=== PATIENT | female | born 1950 | race Two or more races ===

== ENCOUNTER 2021-09-25 12:59 | Emergency (ER) | payer OTHER ==
[~2021-09-25] VITALS: Ht 149.9 cm; Wt 65.8 kg
[2021-09-25 14:05] LABS: Basophils # (auto) 0.1 10 ^3/uL (0-0.2); Eosinophils # (auto) 0.1 10 ^3/uL (0-0.8); Hemoglobin 12.6 g/dL (12.2-16.2); Lymphocytes # (auto) 1.5 10 ^3/uL (0.4-5.4); Monocytes # (auto) 0.6 10 ^3/uL (0-1.3); Neutrophils # (auto) 4.9 10 ^3/uL (1.6-8.6); White Blood Cell 7.1 10^3/uL (4.4-10.8)
[2021-09-25 14:07] LABS: Basophils % (auto) 1.1 % (0.0-2.0); Eosinophils % (auto) 1.3 % (0.0-7.0); Hematocrit 37.5 % (36.0-46.0); Lymphocytes % (auto) 21.1 % (10.0-50.0); Mean Corpuscular Hemoglobin 30.9 pg (28.0-32.0); Mean Corpuscular Hgb Conc. 33.5 g/dL (32.0-36.0); Mean Corpuscular Volume 92.2 fL (80.0-100.0); Monocytes % (auto) 7.9 % (0.0-12.0); Neutrophils % (auto) 68.6 % (37.0-80.0); Red Blood Cells 4.06 10^6/uL (4.0-5.20); Red Cell Distribution Width 14.4 % (11.8-14.3)
[2021-09-25 14:23] LABS: Potassium 4.4 mmol/L (3.5-5.1)
[2021-09-25 14:35] LABS: Albumin 3.5 g/dL (3.4-5.0); BUN/Creatinine Ratio 10.7; Bilirubin, Total 0.3 mg/dL (0.2-1.0); Calcium 8.9 mg/dL (8.5-10.1); Magnesium 2.1 mg/dL (1.6-2.6); Total Protein 7.1 g/dL (6.4-8.2)
[2021-09-25 15:14] LABS: Urine Bacteria NONE SEEN /hpf (None Seen); Urine Blood Negative /uL (Negative); Urine Hyaline Cast MOD /lpf (0 - 2); Urine Specific Gravity 1.011 (1.001-1.035); Urine WBC 3 /hpf (0 - 5)
[2021-09-25 16:00] VITALS: BP 118/62
[2021-09-25] MEDS ORDERED: CIPR500T4 PO (16:52)
== END 2021-09-25 17:13 | disposition home or self-care (01) ==
LOC: ER 12:59
DX: N39.0 Urinary tract infection, site not specified (principal); E11.9 Type 2 diabetes mellitus without complications; I10 Essential (primary) hypertension; Z20.822 Contact with and (suspected) exposure to COVID-19
CPT/HCPCS: 36415; 71045; 80053; 81001; 83735; 84484; 85025; 87426; 93005

== ENCOUNTER → 2023-09-03 | Outpatient (CLI) | payer OTHER ==
[~2023-09-03] MED LIST: CIPR500T4 PO
[2023-09-03 09:57] LABS: Urine Bacteria NONE SEEN /hpf (None Seen); Urine Blood Negative /uL (Negative); Urine Clarity Clear (Clear); Urine Protein, UAD Negative (Negative); Urine Specific Gravity 1.004 (1.001-1.035); Urine Urobilinogen Normal (Negative); Urine WBC 2 /hpf (0 - 5); Urine pH 5.5 (5.0-8.0)
[2023-09-03 10:04] LABS: Urine Color Straw (Yellow)
[2023-09-03 10:07] LABS: Basophils # (auto) 0.1 10 ^3/uL (0-0.2); Eosinophils # (auto) 0.2 10 ^3/uL (0-0.8); Hemoglobin 11.8 g/dL (12.2-16.2); Mean Corpuscular Hemoglobin 30.1 pg (28.0-32.0); Neutrophils # (auto) 3.3 10 ^3/uL (1.6-8.6)
[2023-09-03 10:10] LABS: Basophils % (auto) 2.4 % (0.0-2.0); Hematocrit 35.6 % (36.0-46.0); Lymphocytes # (auto) 1.8 10 ^3/uL (0.4-5.4); Lymphocytes % (auto) 29.6 % (10.0-50.0); Mean Corpuscular Hgb Conc. 33.1 g/dL (32.0-36.0); Mean Corpuscular Volume 90.9 fL (80.0-100.0); Monocytes # (auto) 0.6 10 ^3/uL (0-1.3); Monocytes % (auto) 10.5 % (0.0-12.0); Neutrophils % (auto) 54.5 % (37.0-80.0); Red Blood Cells 3.91 10^6/uL (4.0-5.20); Red Cell Distribution Width 14.1 % (11.8-14.3)
[2023-09-03 10:34] LABS: Alanine Aminotransferase 20 U/L (7-40); Alkaline Phosphatase 53 U/L (46-116); Anion Gap 7 (5-15); BUN/Creatinine Ratio 4.9 (10.0-20.0); Blood Urea Nitrogen 5 mg/dL (9-23); Calcium 9.7 mg/dL (8.5-10.1); Carbon Dioxide 29 mmol/L (20-30); Chloride 103 mmol/L (98-107); Creatinine, Urine 15.01 mg/dL (30.0-125.0); Glucose 74 mg/dL (74-106); LDL Cholesterol 61 mg/dL (< 100); Potassium 4.2 mmol/L (3.5-5.1); Sodium 139 mmol/L (136-145); Triglycerides 91 mg/dL (< 150)
[2023-09-03 10:35] LABS: Albumin 4.3 g/dL (3.2-4.8); Bilirubin, Total 0.5 mg/dL (0.2-1.0); Cholesterol 118 mg/dL (< 200); HDL Cholesterol 41 mg/dL (40-59); Total Protein 7.1 g/dL (5.7-8.2)
[2023-09-03 10:36] LABS: Micro Albumin < 3.0 mg/L (<30.0)
[2023-09-03 10:55] LABS: Aspartate Aminotransferase 22 U/L (13-40)
== END | disposition home or self-care (01) ==
LOC: LAB 09:19
DX: Z12.11 Encounter for screening for malignant neoplasm of colon (principal); E11.9 Type 2 diabetes mellitus without complications; E78.5 Hyperlipidemia, unspecified; E03.9 Hypothyroidism, unspecified; E55.9 Vitamin D deficiency, unspecified
CPT/HCPCS: 36415; 80053; 80061; 81001; 82043; 82306; 82570; 83036; 84439; 84443; 85025

== ENCOUNTER → 2023-09-04 | Outpatient (CLI) | payer OTHER | END | disposition home or self-care (01) | LOC: LAB 09:17 | DX: Z12.11 Encounter for screening for malignant neoplasm of colon (principal); E55.9 Vitamin D deficiency, unspecified; E11.9 Type 2 diabetes mellitus without complications; E03.9 Hypothyroidism, unspecified; E78.5 Hyperlipidemia, unspecified | CPT/HCPCS: 82274 ==

== ENCOUNTER 2024-01-13 10:45 | Inpatient (IN) | payer OTHER, MEDICAID ==
[~2024-01-13] VITALS: Ht 149.9 cm; Wt 65.9 kg
[2024-01-13] MEDS: ACETAMINOPHEN 500 MG TAB PO ONE (13:49)
[2024-01-13 16:56] LABS: Basophils # (auto) 0.1 10 ^3/uL (0-0.2); Basophils % (auto) 0.6 % (0.0-2.0); Eosinophils # (auto) 0.1 10 ^3/uL (0-0.8); Eosinophils % (auto) 1.3 % (0.0-7.0); Hematocrit 36.5 % (36.0-46.0); Hemoglobin 12.2 g/dL (12.2-16.2); Lymphocytes # (auto) 1.8 10 ^3/uL (0.4-5.4); Lymphocytes % (auto) 20.6 % (10.0-50.0); Mean Corpuscular Hemoglobin 29.9 pg (28.0-32.0); Mean Corpuscular Hgb Conc. 33.4 g/dL (32.0-36.0); Mean Corpuscular Volume 89.6 fL (80.0-100.0); Monocytes # (auto) 0.6 10 ^3/uL (0-1.3); Monocytes % (auto) 7.3 % (0.0-12.0); Neutrophils # (auto) 6.3 10 ^3/uL (1.6-8.6); Neutrophils % (auto) 70.2 % (37.0-80.0); Red Blood Cells 4.08 10^6/uL (4.0-5.20); Red Cell Distribution Width 14.6 % (11.8-14.3); White Blood Cell 8.9 10^3/uL (4.4-10.8)
[2024-01-13 17:16] LABS: Alanine Aminotransferase 23 U/L (7-40); Alkaline Phosphatase 59 U/L (46-116); Anion Gap 7 (5-15); BUN/Creatinine Ratio 9.3 (10.0-20.0); Blood Urea Nitrogen 11 mg/dL (9-23); Calcium 9.7 mg/dL (8.5-10.1); Carbon Dioxide 26 mmol/L (20-30); Chloride 96 mmol/L (98-107); Glucose 273 mg/dL (74-106); Potassium 4.8 mmol/L (3.5-5.1); Sodium 129 mmol/L (136-145)
[2024-01-13 17:17] LABS: Albumin 4.4 g/dL (3.2-4.8); Aspartate Aminotransferase 13 U/L (13-40); Bilirubin, Total 0.4 mg/dL (0.2-1.0)
[2024-01-13] MEDS ORDERED: DOCUSATE SOD 100 MG CAP PO PRN (20:45)
[2024-01-13] MEDS ORDERED: NITROGLYCERIN 0.4 MG SL TAB SL PRN (20:45)
[2024-01-13] MEDS ORDERED: ACETAMINOPHEN 325 MG TAB PO PRN (20:45)
[2024-01-13] MEDS ORDERED: MORPHINE SULFATE INJ 2 MG/ml SYRG IV PRN (20:45)
[2024-01-13] MEDS ORDERED: DEXTROSE (50%) 50ML SYRG IV PRN (20:45)
[2024-01-13] MEDS ORDERED: METF-372 PO (21:05)
[2024-01-13] MEDS ORDERED: GLIP5TAB21 PO (21:05)
[2024-01-13] MEDS ORDERED: ALEN70TA74 PO (21:05)
[2024-01-13] MEDS ORDERED: LEVO50TA7 PO (21:05)
[2024-01-13] MEDS ORDERED: AMLO1TAB23 PO (21:05)
[2024-01-13] MEDS ORDERED: ATOR10TA52 PO (21:05)
[2024-01-13] MEDS ORDERED: FUR20T PO (21:05)
[2024-01-13] MEDS ORDERED: PANT40T PO (21:05)
[2024-01-13] MEDS ORDERED: INSUINJ37 SC (21:05)
[2024-01-13 22:15] VITALS: PULSE 66; RESP 18; O2SAT 99
[2024-01-13] MEDS: NITROGLYCERIN 2% OINT 1GM PKG TD ONE (22:54)
[2024-01-13] MEDS: ACCU-CHEK COMFORT CURVE STRIP VI SCH (22:54)
[2024-01-13] MEDS: HYDROcodone-ACET 5/325MG TAB PO PRN (23:05)
[2024-01-13] MEDS: ASPirin-EC 325mg tab PO ONE (23:05)
[2024-01-13] MEDS: InsuLIN REG 1unit/0.01ml Soln (100units/ml) SC SCH (23:05)
[2024-01-14] VITALS: PULSE 64; RESP 16; O2SAT 98
[2024-01-14] MEDS: SODIUM CHLORIDE 0.9% 1,000 ML IV ONE (00:19)
[2024-01-14] MEDS: ONDANSETRON HCL 4 MG/2 ML VIAL IV PRN (00:41)
[2024-01-14] MEDS: MORPHINE SULFATE INJ 2 MG/ml SYRG IV PRN (00:41)
[2024-01-14] MEDS: LEVOTHYROXINE SODIUM 50 MCG TAB PO SCH (06:42)
[2024-01-14 06:47] LABS: Basophils # (auto) 0.1 10 ^3/uL (0-0.2); Basophils % (auto) 0.9 % (0.0-2.0); Eosinophils # (auto) 0.3 10 ^3/uL (0-0.8); Eosinophils % (auto) 4.2 % (0.0-7.0); Hematocrit 32.4 % (36.0-46.0); Lymphocytes # (auto) 2.3 10 ^3/uL (0.4-5.4); Mean Corpuscular Hemoglobin 29.9 pg (28.0-32.0); Mean Corpuscular Hgb Conc. 33.9 g/dL (32.0-36.0); Mean Corpuscular Volume 88.1 fL (80.0-100.0); Monocytes # (auto) 0.8 10 ^3/uL (0-1.3); Monocytes % (auto) 12.1 % (0.0-12.0); Neutrophils # (auto) 3.1 10 ^3/uL (1.6-8.6); Neutrophils % (auto) 47.8 % (37.0-80.0); Red Blood Cells 3.68 10^6/uL (4.0-5.20); Red Cell Distribution Width 14.7 % (11.8-14.3); White Blood Cell 6.5 10^3/uL (4.4-10.8)
[2024-01-14 06:58] LABS: Alanine Aminotransferase 16 U/L (7-40); Albumin 3.9 g/dL (3.2-4.8); Alkaline Phosphatase 47 U/L (46-116); Anion Gap 9 (5-15); Aspartate Aminotransferase 9 U/L (13-40); BUN/Creatinine Ratio 12.5 (10.0-20.0); Bilirubin, Total 0.4 mg/dL (0.2-1.0); Blood Urea Nitrogen 12 mg/dL (9-23); Calcium 9.1 mg/dL (8.7-10.4); Carbon Dioxide 26 mmol/L (20-30); Chloride 100 mmol/L (98-107); Glucose 65 mg/dL (74-106); Potassium 4.2 mmol/L (3.5-5.1); Total Protein 6.5 g/dL (5.7-8.2)
[2024-01-14 07:10] LABS: Sodium 135 mmol/L (136-145)
[2024-01-14 07:28] VITALS: PULSE 65; RESP 14; O2SAT 96
[2024-01-14 08:01] LABS: Triglycerides 67 mg/dL (< 150)
[2024-01-14 08:02] LABS: Cholesterol 117 mg/dL (< 200); LDL Cholesterol 62 mg/dL (< 100)
[2024-01-14 08:03] LABS: HDL Cholesterol 46 mg/dL (40-59)
[2024-01-14 10:08] VITALS: PULSE 78; RESP 20; O2SAT 96
[2024-01-14] MEDS: ASPirin-EC 81 mg tab PO SCH (10:25)
[2024-01-14] MEDS: FUROSEMIDE 20 MG TAB PO SCH (10:25)
[2024-01-14] MEDS: amLODIPine BESYLATE 5 MG TAB PO SCH (10:25)
[2024-01-14] MEDS: ATORVASTATIN 20 MG TAB PO SCH (10:26)
[2024-01-14] MEDS: PANTOPRAZOLE 40 MG TAB PO SCH (10:26)
[2024-01-14] MEDS: ENOXAPARIN SOD 40 MG/0.4 ML SYRINGE SC SCH (10:29)
[2024-01-14 12:13] LABS: Folate (Folic Acid) 30.06 ng/mL (>5.38)
[2024-01-14 12:42] VITALS: BP 106/49; PULSE 71; RESP 18; TEMP 97.7; O2SAT 96
[2024-01-14] MEDS ORDERED: ASPI-543 PO (16:34)
[2024-01-14 17:02] VITALS: BP 123/63; PULSE 73; RESP 18; TEMP 98.6
[2024-01-18] MEDS ORDERED: ALENDRONATE SODIUM 10 MG TAB PO SCH (07:00)
== END 2024-01-14 18:29 | disposition home or self-care (01) | DRG 913 ==
LOC: ER 10:45 → TELE 20:47 → TELE-EAST 01-14 09:25
PROVIDERS: ADMIT Internal Medicine; ATTEND Internal Medicine
DX: S29.8XXA Other specified injuries of thorax, initial encounter (principal); N17.0 Acute kidney failure with tubular necrosis; E87.1 Hypo-osmolality and hyponatremia; I10 Essential (primary) hypertension; E11.9 Type 2 diabetes mellitus without complications; E78.5 Hyperlipidemia, unspecified; E03.9 Hypothyroidism, unspecified; S20.212A Contusion of left front wall of thorax, initial encounter; W18.39XA Other fall on same level, initial encounter; Z96.652 Presence of left artificial knee joint; Z88.2 Allergy status to sulfonamides; Y93.89 Activity, other specified; Y92.89 Other specified places as the place of occurrence of the external cause; Y99.8 Other external cause status; Z82.49 Family history of ischemic heart disease and other diseases of the circulatory system; Z83.3 Family history of diabetes mellitus
CPT/HCPCS: 36415; 70450; 71101; 80053; 80061; 82306; 82607; 82746; 82962; 83036; 83880; 84436; 84443; 84481; 84484; 85025; 93005; 93306; 93886; 96365; 96375; 97163; G0378; J1815; J2405

== ENCOUNTER → 2024-02-24 | Outpatient (CLI) | payer OTHER, MEDICAID ==
[~2024-02-24] MED LIST changes: +ALEN70TA74 PO; +AMLO1TAB23 PO; +ASPI-543 PO; +ATOR10TA52 PO; +FUR20T PO; +GLIP5TAB21 PO; +INSUINJ37 SC; +LEVO50TA7 PO; +METF-372 PO; +PANT40T PO
[2024-02-24 09:07] LABS: Basophils # (auto) 0.1 10 ^3/uL (0-0.2); Eosinophils # (auto) 0.2 10 ^3/uL (0-0.8); Hemoglobin 11.2 g/dL (12.2-16.2); Lymphocytes # (auto) 1.8 10 ^3/uL (0.4-5.4); Monocytes # (auto) 0.6 10 ^3/uL (0-1.3); White Blood Cell 5.9 10^3/uL (4.4-10.8)
[2024-02-24 09:11] LABS: Basophils % (auto) 2.3 % (0.0-2.0); Hematocrit 32.1 % (36.0-46.0); Lymphocytes % (auto) 30.7 % (10.0-50.0); Mean Corpuscular Hemoglobin 30.9 pg (28.0-32.0); Mean Corpuscular Hgb Conc. 34.9 g/dL (32.0-36.0); Mean Corpuscular Volume 88.4 fL (80.0-100.0); Monocytes % (auto) 10.2 % (0.0-12.0); Neutrophils # (auto) 3.1 10 ^3/uL (1.6-8.6); Neutrophils % (auto) 52.8 % (37.0-80.0); Nucleated Red Blood Cells % 0.1 %; Red Blood Cells 3.64 10^6/uL (4.0-5.20); Red Cell Distribution Width 14.3 % (11.8-14.3)
[2024-02-24 09:34] LABS: Urine Bacteria FEW /hpf (None Seen); Urine Blood Negative /uL (Negative); Urine Clarity Clear (Clear); Urine Color Colorless (Yellow); Urine Hyaline Cast FEW /lpf (0 - 2); Urine Protein, UAD Negative (Negative); Urine Specific Gravity 1.006 (1.001-1.035); Urine Urobilinogen Normal (Negative); Urine WBC <1 /hpf (0 - 5); Urine pH 5.5 (5.0-9.0)
[2024-02-24 09:44] LABS: Alanine Aminotransferase 14 U/L (7-40); Alkaline Phosphatase 52 U/L (46-116); Anion Gap 6 (5-15); Calcium 9.4 mg/dL (8.7-10.4); Carbon Dioxide 28 mmol/L (20-30); Chloride 103 mmol/L (98-107); Glucose 89 mg/dL (74-106); Potassium 4.3 mmol/L (3.5-5.1); Sodium 137 mmol/L (136-145)
[2024-02-24 09:45] LABS: BUN/Creatinine Ratio 8.2 (10.0-20.0); Blood Urea Nitrogen 8 mg/dL (9-23); LDL Cholesterol 66 mg/dL (< 100); Triglycerides 95 mg/dL (< 150)
[2024-02-24 09:46] LABS: Albumin 4.1 g/dL (3.2-4.8); Aspartate Aminotransferase 11 U/L (13-40); Cholesterol 126 mg/dL (< 200); HDL Cholesterol 47 mg/dL (40-59)
[2024-02-24 09:47] LABS: Bilirubin, Total 0.5 mg/dL (0.2-1.0); Total Protein 6.6 g/dL (5.7-8.2)
[2024-02-24 11:14] LABS: Free T4 (Free Thyroxine) 1.47 ng/dL (0.89-1.76)
== END | disposition home or self-care (01) ==
LOC: LAB 08:25
DX: I10 Essential (primary) hypertension (principal); E11.9 Type 2 diabetes mellitus without complications; E78.5 Hyperlipidemia, unspecified; E03.9 Hypothyroidism, unspecified; E55.9 Vitamin D deficiency, unspecified
CPT/HCPCS: 36415; 80053; 80061; 81001; 82306; 82607; 83036; 84439; 84443; 85025

== ENCOUNTER → 2024-05-06 | Outpatient (CLI) | payer OTHER, MEDICAID ==
[~2024-05-06] VITALS: Ht 149.9 cm; Wt 68.0 kg
[~2024-05-06] MED LIST changes: -FUR20T PO; +FURO20TA4 PO
[2024-05-06] MEDS: ADENOSINE 57 MG in GIVE UN-DILUTED 0 ML IV ONE (11:16)
== END | disposition home or self-care (01) ==
LOC: RT 09:02
PROVIDERS: ATTEND Student in an Organized Health Care Education/Training Program
DX: Z01.810 Encounter for preprocedural cardiovascular examination (principal); K80.20 Calculus of gallbladder without cholecystitis without obstruction; R07.9 Chest pain, unspecified; E78.5 Hyperlipidemia, unspecified; I10 Essential (primary) hypertension; E11.9 Type 2 diabetes mellitus without complications
CPT/HCPCS: 78452; 93017; A9500; J0153

== ENCOUNTER → 2024-05-22 | Outpatient (CLI) | payer OTHER, MEDICAID ==
[2024-05-22 09:26] LABS: Urine Bacteria FEW /hpf (None Seen); Urine Blood Negative /uL (Negative); Urine Clarity Hazy (Clear); Urine Color Light-Yellow (Yellow); Urine Hyaline Cast FEW /lpf (0 - 2); Urine Protein, UAD Negative (Negative); Urine Specific Gravity 1.005 (1.001-1.035); Urine Urobilinogen Normal (Negative); Urine WBC 4 /hpf (0 - 5); Urine pH 5.5 (5.0-9.0)
[2024-05-22 10:22] LABS: Anion Gap 6 (5-15); Calcium 9.9 mg/dL (8.7-10.4); Carbon Dioxide 28 mmol/L (20-31); Chloride 98 mmol/L (98-107); Potassium 4.1 mmol/L (3.5-5.1); Sodium 132 mmol/L (136-145)
[2024-05-22 10:27] LABS: Alkaline Phosphatase 64 U/L (46-116); Glucose 201 mg/dL (74-106)
[2024-05-22 10:28] LABS: LDL Cholesterol 75 mg/dL (< 100); Triglycerides 152 mg/dL (< 150)
[2024-05-22 10:29] LABS: Albumin 4.3 g/dL (3.2-4.8); Aspartate Aminotransferase 13 U/L (13-40); BUN/Creatinine Ratio 5.7 (10.0-20.0); Blood Urea Nitrogen < 5 mg/dL (9-23); Cholesterol 136 mg/dL (< 200); HDL Cholesterol 45 mg/dL (40-59)
[2024-05-22 10:30] LABS: Bilirubin, Total 0.5 mg/dL (0.2-1.0); Total Protein 7.2 g/dL (5.7-8.2)
[2024-05-22 10:43] LABS: Micro Albumin < 3.0 mg/L (<30.0)
[2024-05-22 10:48] LABS: Alanine Aminotransferase 17 U/L (7-40)
[2024-05-22 11:30] LABS: Creatinine, Urine 18.15 mg/dL (30.0-125.0)
== END | disposition home or self-care (01) ==
LOC: LAB 09:00
DX: I10 Essential (primary) hypertension (principal); E11.649 Type 2 diabetes mellitus with hypoglycemia without coma; E11.65 Type 2 diabetes mellitus with hyperglycemia; E55.9 Vitamin D deficiency, unspecified; E78.5 Hyperlipidemia, unspecified
CPT/HCPCS: 36415; 80053; 80061; 81001; 82043; 82306; 82570; 82607; 83036; 84443

== ENCOUNTER 2024-06-10 08:23 | Inpatient (IN) | payer OTHER, MEDICAID ==
[2024-06-05 12:26] LABS: Urine Bacteria None Seen /hpf (None Seen)
[2024-06-05 13:17] LABS: Basophils # (auto) 0.1 10 ^3/uL (0-0.2); Eosinophils # (auto) 0.1 10 ^3/uL (0-0.8); Hemoglobin 11.8 g/dL (12.2-16.2)
[2024-06-05 13:19] LABS: Basophils % (auto) 1.1 % (0.0-2.0); Eosinophils % (auto) 1.7 % (0.0-7.0); Hematocrit 35.3 % (36.0-46.0); Lymphocytes # (auto) 2.1 10 ^3/uL (0.4-5.4); Lymphocytes % (auto) 25.4 % (10.0-50.0); Mean Corpuscular Hemoglobin 29.2 pg (28.0-32.0); Mean Corpuscular Hgb Conc. 33.4 g/dL (32.0-36.0); Mean Corpuscular Volume 87.4 fL (80.0-100.0); Monocytes # (auto) 0.8 10 ^3/uL (0-1.3); Monocytes % (auto) 9.1 % (0.0-12.0); Neutrophils # (auto) 5.2 10 ^3/uL (1.6-8.6); Neutrophils % (auto) 62.7 % (37.0-80.0); Platelet Count (auto) 534 10^3/uL (140-450); Red Blood Cells 4.04 10^6/uL (4.0-5.20); Red Cell Distribution Width 13.9 % (11.8-14.3); White Blood Cell 8.3 10^3/uL (4.4-10.8)
[2024-06-05 13:31] LABS: Alanine Aminotransferase 17 U/L (7-40); Albumin 4.2 g/dL (3.2-4.8); Alkaline Phosphatase 66 U/L (46-116); Anion Gap 9 (5-15); Aspartate Aminotransferase 10 U/L (13-40); BUN/Creatinine Ratio 5.2 (10.0-20.0); Bilirubin, Total 0.3 mg/dL (0.2-1.0); Blood Urea Nitrogen 5 mg/dL (9-23); Calcium 9.6 mg/dL (8.7-10.4); Carbon Dioxide 26 mmol/L (20-31); Chloride 98 mmol/L (98-107); Glucose 161 mg/dL (74-106); Potassium 4.6 mmol/L (3.5-5.1); Sodium 133 mmol/L (136-145); Total Protein 7.1 g/dL (5.7-8.2)
[2024-06-05 13:35] LABS: Partial Thromboplastin Time 25.1 SEC (24.5-34.5); Prothrombin Time 10.6 sec (9.3-11.8); Urine Blood Negative /uL (Negative); Urine Clarity Clear (Clear); Urine Color Light-Yellow (Yellow); Urine Protein, UAD Negative (Negative); Urine Specific Gravity 1.004 (1.001-1.035); Urine Urobilinogen Normal (Negative); Urine WBC 23 /hpf (0 - 5); Urine pH 5.5 (5.0-9.0)
[~2024-06-10] VITALS: Ht 149.9 cm; Wt 73.5 kg
[~2024-06-10 08:23] MED LIST changes: -ASPI-543 PO; +BENA10TA16 PO; -CIPR500T4 PO; +GABA-1250 PO; -GLIP5TAB21 PO
[2024-06-10] MEDS: ceFAZolin 2 GM/D5W100ml 100 ML IV ONE (09:20)
[2024-06-10] MEDS: LIDOCAINE 1%HCL (LOCAL ANESTH) 10 ML MDV IJ ONE (09:38)
[2024-06-10 10:16] VITALS: RESP 13; O2SAT 100
[2024-06-10] MEDS ORDERED: ONDANSETRON HCL 4 MG/2 ML VIAL IV ONE (10:30)
[2024-06-10] MEDS ORDERED: ACCU-CHEK COMFORT CURVE STRIP VI ONE (10:30)
[2024-06-10] MEDS ORDERED: HYDROmorphone HCL 2 MG/ML VL/or syr IV PRN ×3 (10:30→19:00)
[2024-06-10] MEDS ORDERED: SOD CHL 0.45% WITH 20MEQ KCL 1,000 ML IV SCH (10:45)
[2024-06-10] MEDS ORDERED: MORPHINE SULFATE INJ 2 MG/ml SYRG IV PRN (11:00)
[2024-06-10] MEDS ORDERED: NITROGLYCERIN 0.4 MG SL TAB SL PRN (11:00)
[2024-06-10 11:29] VITALS: PULSE 92; RESP 16; O2SAT 91
[2024-06-10 12:30] VITALS: BP 121/48; PULSE 94; RESP 21; TEMP 97.4; O2SAT 91
--- NOTE | 2024-06-10 13:21 | DVHOP ---
DATE OF SURGERY: 06/10/2024 PREOPERATIVE DIAGNOSES: Cholelithiasis, cholecystitis. POSTOPERATIVE DIAGNOSES: Cholelithiasis, cholecystitis. SURGEON: Sabino Tolentino MD CABLE PULLER: Nate Lorenzana. ANESTHESIA: General endotracheal. ANESTHESIOLOGIST: Dr. Mccabe. PROCEDURE: Laparoscopy, laparoscopic cholecystectomy. DESCRIPTION OF PROCEDURE: Under general endotracheal anesthesia, with the patient's skin prepped and draped, a supraumbilical incision was made and Veress needle inserted into the abdominal cavity to establish pneumoperitoneum to 15 mmHg pressure by insufflation with carbon dioxide. With the abdomen fully distended, the needle was removed and replaced with a 5 mm trocar port through which a 0-degree viewing laparoscope was inserted and under direct vision, 5 and 10 mm ports inserted through the right anterior axillary line at the level of the umbilicus in the subxiphoid skin respectively. Instrumentation was introduced. Laparoscopy was performed and revealed adhesions in the pelvis, otherwise no unexpected pathology was encountered. However, the laparoscopy was hampered by the patient's morbid obesity. The gallbladder was found to be chronically inflamed and it was recessed into a very fatty liver, which was difficult to manipulate. The gallbladder was placed on tension and the cystic duct and cystic artery were identified. The cystic artery was high up into the liver bed of the gallbladder and the hepatic artery was in abnormal position overlying the anterior surface of the gallbladder and fundus. It was wrapped in a peritoneal veil which was difficult to separate from the fundus of the gallbladder. Following meticulous dissection in order to avoid inadvertent injury to the common bile duct, the cystic artery was divided between metallic clips and the hepatic artery was then from the anterior surface of the gallbladder and allowed to retract into its semi-normal anatomical position. The cystic duct was identified and circumferentially dissected and traced into the hepaticocystic triangle so as to avoid inadvertent injury to the common bile duct. Following division of the cystic duct, the gallbladder was resected from its liver bed by electrocautery and traction. It was partially intrahepatic which resulted in partial denuding of the liver parenchyma in the most distal section of the gallbladder insertion. The fully mobilized gallbladder was removed from the peritoneal cavity. A small amount of hemostatic SNoW was inserted in order to assist with hemostasis. At the termination of the procedure, hemostasis was found to be complete. There was no evidence of bleeding from either the port sites or from the liver bed. The right upper quadrant was profusely irrigated, irrigant was aspirated. Hemostasis was again inspected and found to be complete. Instrumentation was withdrawn. Pneumoperitoneum was evacuated. Fascial defect closed using 0 Vicryl. Wounds approximated using Monocryl sutures, Dermabond glue and Steri-Strips. The patient remained stable throughout the procedure, left the operating room following an accurate needle and sponge count. Family was thoroughly informed by phone. MD RADHA Louis TID: [id number] RECEIPT: [id number]
[2024-06-10] MEDS ORDERED: DEXTROSE (50%) 50ML SYRG IV PRN (15:15)
[2024-06-10] MEDS ORDERED: ONDANSETRON HCL 4 MG/2 ML VIAL IV PRN (15:15)
--- NOTE | 2024-06-10 15:16 | DVHHP2 ---
Review of Systems Allergies: Coded Allergies: Sulfa Antibiotics (Verified Allergy, Severe, 05/06/24) Codeine (Verified Allergy, Unknown, 05/06/24) Medications Current Medications Medications Dose Ordered Sig/Mary Ann Route Start Time Stop Time Status Last Admin Dose Admin Ceftriaxone Sodium 50 ml @ 100 mls/hr DAILY@09 IV 06/11/24 09:00 Hydromorphone HCl 0.5 mg Q3HPRN PRN IV 06/10/24 10:45 Potassium Chloride/Sodium Chloride 1,000 ml @ 100 mls/hr Q10H IV 06/10/24 10:45 Nitroglycerin 0.4 mg Q5MINP PRN SL 06/10/24 11:00 Morphine Sulfate 2 mg Q30M PRN IV 06/10/24 11:00 Exam Vital Signs Vital Signs Date Time Temp Pulse Resp B/P (MAP) Pulse Ox O2 Delivery O2 Flow Rate FiO2 06/10/24 12:30 97.4 94 21 121/48 (72) 91 97.4 06/10/24 10:26 Room Air 99 06/10/24 10:16 10.0 Labs/Xrays Labs Test 06/10/24 13:43 06/10/24 10:23 06/05/24 12:23 Range/Units POC Glucose 181 H 70-106 mg/dl White Blood Count 8.3 4.4-10.8 10^3/uL Red Blood Count 4.04 4.0-5.20 10^6/uL Hemoglobin 11.8 L 12.2-16.2 g/dL Hematocrit 35.3 L 36.0-46.0 % Mean Corpuscular Volume 87.4 80.0-100.0 fL Mean Corpuscular Hemoglobin 29.2 28.0-32.0 pg Mean Corpuscular Hemoglobin Concent 33.4 32.0-36.0 g/dL Red Cell Distribution Width 13.9 11.8-14.3 % Platelet Count 534 H 140-450 10^3/uL Mean Platelet Volume 7.7 6.9-10.8 fL Neutrophils (%) (Auto) 62.7 37.0-80.0 % Lymphocytes (%) (Auto) 25.4 10.0-50.0 % Monocytes (%) (Auto) 9.1 0.0-12.0 % Eosinophils (%) (Auto) 1.7 0.0-7.0 % Basophils (%) (Auto) 1.1 0.0-2.0 % Neutrophils # (Auto) 5.2 1.6-8.6 10 ^3/uL Lymphocytes # (Auto) 2.1 0.4-5.4 10 ^3/uL Monocytes # (Auto) 0.8 0-1.3 10 ^3/uL Eosinophils # (Auto) 0.1 0-0.8 10 ^3/uL Basophils # (Auto) 0.1 0-0.2 10 ^3/uL Nucleated Red Blood Cells 0.0 % Prothrombin Time 10.6 9.3-11.8 sec Prothrombin Time INR 1.00 0.9-1.15 Activated Partial Thromboplast Time 25.1 24.5-34.5 SEC Urine Color Light-yellow Yellow Urine Clarity Clear Clear Urine pH 5.5 5.0-9.0 Urine Specific [place] 1.004 1.001-1.035 Urine Protein Negative Negative Urine Ketones Negative Negative Urine Blood Negative Negative /uL Urine Nitrite Negative Negative Urine Bilirubin Negative Negative Urine Urobilinogen Normal Negative mg/dL Urine Leukocyte Esterase 3+ Negative /uL Urine RBC 4 0 - 4 /hpf Urine WBC 23 0 - 5 /hpf Urine Squamous Epithelial Cells Few <5 /hpf Urine Bacteria None seen None Seen /hpf Urine Glucose Normal Normal mg/dL Sodium Level 133 L 136-145 mmol/L Potassium Level 4.6 3.5-5.1 mmol/L Chloride Level 98 98-107 mmol/L Carbon Dioxide Level 26 20-31 mmol/L Anion Gap 9 5-15 Blood Urea Nitrogen 5 L 9-23 mg/dL Creatinine 0.97 0.550-1.02 mg/dL Glomerular Filtration Rate Calc 61 >90 mL/min BUN/Creatinine Ratio 5.2 L 10.0-20.0 Serum Glucose 161 H 74-106 mg/dL Calcium Level 9.6 8.7-10.4 mg/dL Total Bilirubin 0.3 0.2-1.0 mg/dL Aspartate Amino Transferase (AST) 10 L 13-40 U/L Alanine Aminotransferase (ALT) 17 7-40 U/L Alkaline Phosphatase 66 46-116 U/L Total Protein 7.1 5.7-8.2 g/dL Albumin 4.2 3.2-4.8 g/dL Assessment/Plan Assessment/Plan see dictated note Plan discussed with: Patient, Daughter My Orders Orders - ARACELI ZARATE MD Procedure Category Date Status Time Admit ADMIT 06/10/24 Transmitted 10:57 Oxygen By Nasal RT 06/10/24 Transmitted Cannula 10:57 Nitroglycerin PHA 06/10/24 In Process Sublingual (Ntrostat 11:00 Morphine Sulfate PHA 06/10/24 In Process Injection 11:00 Stat Ekg For Chest ARGENIS 06/10/24 In Process Pain 10:57 Notify Md Of Changes ARGENIS 06/10/24 In Process From Base 10:57 Emergency Dysrhythmia ARGENIS 06/10/24 In Process Protocol 10:57 Rhythm Strips Once ARGENIS 06/10/24 In Process Every Shift 10:57 Consistent DIET 06/10/24 Transmitted Carb(Ccho)Diabetes Lunch 1/2 Ns W Potassium PHA 06/10/24 Transmitted 20meq 15:15 Ondansetron Hcl PHA 06/10/24 Transmitted (Zofran) 15:15 Glucose Blood PHA 06/10/24 Transmitted (Accu-Chek Comfort 18:00 Mild Sliding Scale PHA 06/10/24 Transmitted Npo - Q6hr 18:00 Dextrose 50% Syringe PHA 06/10/24 Transmitted 15:15 Complete Blood Count LAB 06/11/24 Verified 06:00 Comprehensive LAB 06/11/24 Verified Metabolic Panel 06:00 Hemoglobin A1c LAB 06/11/24 Verified 06:00 Tramadol Hcl (Ultram) PHA 06/10/24 Transmitted 15:15 Full Liq Diet DIET 06/10/24 Transmitted Dinner Date of Service: Jun 10, 2024 Billing Provider: ARACELI ZARATE MD Common Visit Codes: [id number] INP/OBS CARE (HIGH) ARACELI ZARATE MD Jun 10, 2024 15:16
--- NOTE | 2024-06-10 15:30 | DVHHP ---
ADMIT DATE: 06/10/2024 HISTORY OF PRESENT ILLNESS: The patient is a 73-year-old lady who was admitted after she underwent surgery by Dr. Tolentino for laparoscopic cholecystectomy for cholelithiasis and chronic cholecystitis. The patient at this time denies any significant abdominal pain. No nausea or vomiting. No shortness of breath. REVIEW OF SYSTEMS: Review of rest of systems are otherwise currently negative. PAST MEDICAL HISTORY: Significant for hypertension, hyperlipidemia, diabetes mellitus, hypothyroidism. MEDICATIONS: Include amlodipine, Lipitor, benazepril, Lasix, gabapentin, Lantus, levothyroxine, metformin. ALLERGIES: CODEINE AND SULFA. SOCIAL HISTORY: Denies smoking or alcohol. Lives with her daughter. FAMILY HISTORY: Negative. PHYSICAL EXAMINATION: GENERAL: The patient is awake, alert. VITAL SIGNS: Temperature 97.4, pulse 91 per minute, blood pressure 121/48. SHEENT: Unremarkable. NECK: There is no JVD, no pedal edema. LUNGS: Equal bilaterally. No added sounds. CARDIOVASCULAR: S1, S2 is regular. No murmurs. ABDOMEN: Soft. Bowel sounds are hypoactive. NEUROLOGIC: Nonfocal. MUSCULOSKELETAL: Normal. ASSESSMENT AND PLAN: * Diabetes mellitus, for which she will be placed on sliding scale insulin. * Hypertension, for which her blood pressure will be monitored. * Hypothyroidism. She will continue her home medication and TSH will be checked. * Hyperlipidemia. * Status post laparoscopic cholecystectomy for cholelithiasis and chronic cholecystitis, for which she will be placed on IV fluids, pain medications and will be encouraged to ambulate. I have also discussed this plan of care with her daughter at the bedside. MD LONG Rader/JOSE DE JESUS TID: [id number] RECEIPT: [id number]
[2024-06-10] MEDS: SOD CHL 0.45% WITH 20MEQ KCL 1,000 ML IV SCH (16:16)
[2024-06-10] MEDS: traMADol HCL 50 MG TAB PO PRN (16:33)
[2024-06-10 16:38] VITALS: BP 138/72; PULSE 93; RESP 19; TEMP 98.1; O2SAT 94
[2024-06-10] MEDS: InsuLIN REG 1unit/0.01ml Soln (100units/ml) SC SCH (17:59)
[2024-06-10] MEDS: ACCU-CHEK COMFORT CURVE STRIP VI SCH (18:02)
[2024-06-10 20:00] VITALS: PULSE 100; RESP 18; O2SAT 96
[2024-06-10] MEDS: HYDROMORPHONE HCL 1 MG/ML INJ IV PRN (20:42)
[2024-06-10 21:00] VITALS: BP 126/67; PULSE 100; RESP 18; TEMP 98; O2SAT 96
[2024-06-11 01:00] VITALS: BP 114/58; PULSE 91; RESP 18; TEMP 98.3; O2SAT 98
[2024-06-11 05:00] VITALS: BP 109/46; PULSE 80; RESP 19; TEMP 97.7; O2SAT 95
[2024-06-11] MEDS: LEVOTHYROXINE SODIUM 50 MCG TAB PO SCH (05:25)
[2024-06-11 08:27] LABS: Basophils # (auto) 0 10 ^3/uL (0-0.2); Basophils % (auto) 0.4 % (0.0-2.0); Eosinophils # (auto) 0 10 ^3/uL (0-0.8); Lymphocytes # (auto) 1.1 10 ^3/uL (0.4-5.4); Neutrophils # (auto) 8.8 10 ^3/uL (1.6-8.6); Red Cell Distribution Width 13.9 % (11.8-14.3)
[2024-06-11 08:30] LABS: Hematocrit 31.8 % (36.0-46.0); Hemoglobin 10.6 g/dL (12.2-16.2); Lymphocytes % (auto) 10.3 % (10.0-50.0); Mean Corpuscular Hemoglobin 29.3 pg (28.0-32.0); Mean Corpuscular Hgb Conc. 33.4 g/dL (32.0-36.0); Mean Corpuscular Volume 87.7 fL (80.0-100.0); Monocytes % (auto) 9.1 % (0.0-12.0); Neutrophils % (auto) 80.2 % (37.0-80.0); Platelet Count (auto) 503 10^3/uL (140-450); Red Blood Cells 3.62 10^6/uL (4.0-5.20)
[2024-06-11 08:33] LABS: Basophils # (auto) 0 10 ^3/uL (0-0.2); Eosinophils # (auto) 0 10 ^3/uL (0-0.8); Lymphocytes # (auto) 1.1 10 ^3/uL (0.4-5.4); Neutrophils # (auto) 8.7 10 ^3/uL (1.6-8.6); White Blood Cell 10.8 10^3/uL (4.4-10.8)
[2024-06-11 08:35] LABS: Basophils % (auto) 0.3 % (0.0-2.0); Hematocrit 31.5 % (36.0-46.0); Hemoglobin 10.8 g/dL (12.2-16.2); Lymphocytes % (auto) 10.3 % (10.0-50.0); Mean Corpuscular Hemoglobin 29.9 pg (28.0-32.0); Mean Corpuscular Hgb Conc. 34.2 g/dL (32.0-36.0); Mean Corpuscular Volume 87.5 fL (80.0-100.0); Monocytes # (auto) 0.9 10 ^3/uL (0-1.3); Monocytes % (auto) 8.8 % (0.0-12.0); Neutrophils % (auto) 80.6 % (37.0-80.0); Platelet Count (auto) 493 10^3/uL (140-450); Red Cell Distribution Width 14.2 % (11.8-14.3)
[2024-06-11 08:58] LABS: Alanine Aminotransferase 51 U/L (7-40); Albumin 3.8 g/dL (3.2-4.8); Alkaline Phosphatase 59 U/L (46-116); Anion Gap 6 (5-15); Aspartate Aminotransferase 35 U/L (13-40); BUN/Creatinine Ratio 12.2 (10.0-20.0); Bilirubin, Total 0.4 mg/dL (0.2-1.0); Blood Urea Nitrogen 10 mg/dL (9-23); Calcium 9.2 mg/dL (8.7-10.4); Carbon Dioxide 27 mmol/L (20-31); Chloride 101 mmol/L (98-107); Glucose 240 mg/dL (74-106); Potassium 4.2 mmol/L (3.5-5.1); Sodium 134 mmol/L (136-145); Total Protein 6.4 g/dL (5.7-8.2)
[2024-06-11 08:59] LABS: Hepatitis B Surface Antigen Negative (Negative)
[2024-06-11 09:00] VITALS: BP 129/76; PULSE 69; RESP 14; TEMP 98.4; O2SAT 98
[2024-06-11 09:20] LABS: Hepatitis C Antibody Negative (Negative)
[2024-06-11] MEDS: cefTRIAXone 1GM/50ML D5W 50 ML IV SCH (09:34)
--- NOTE | 2024-06-11 11:04 | DVHPNRES ---
Progress Note Date Seen: Jun 11, 2024 Resident Creating Document: CHICHO MCDANIEL RESIDENT Has the PT tested + for MRSA If YES, has PT been informed?: No Medical Necessity Reason Pt with a Central, PICC or Fol: No Subjective Review of Systems This is a 73-year-old female with past medical history of hypertension, dyslipidemia, type 2 diabetes mellitus, hypothyroidism who presented to the ED was admitted for laparoscopic cholecystectomy due to cholelithiasis and chronic cholecystitis. At that time the patient denied any significant abdominal pain, nausea, vomiting or any other symptoms at that time. The patient underwent laparoscopic cholecystectomy on 06/10/2024 without further complications. The patient was started on IV ceftriaxone, levothyroxine 50 mcg q.a.m. and Dilaudid for pain. Patient was initially placed on full liquid diet. Patient seen and examined at bedside. The patient is lying in bed with very mild discomfort in the abdomen no significant complaints. The patient states that he is tolerating liquid diet without any sensation of nausea or vomiting for which we will advanced diet to pureed diet and watch upon responsiveness. We will order physical therapy to start working with the patient, ambulating. IV fluids were stopped since the patient is tolerating oral diet and potassium was normal range. We will monitor electrolytes closely. ROS Constitutional: Denies weight loss, fever and chills. HEENT: Denies changes in vision and hearing. Respiratory: Denies shortness of breath and cough Cardiovascular: Denies chest discomfort or palpitations GI: Denies abdominal pain, nausea, vomiting and diarrhea. : Denies dysuria and urinary frequency. Musculoskeletal: Denies myalgias and joint pain Skin: Denies rash and pruritus. Neurological: Denies dizziness, headache, vision or hearing problems Objective vital signs Vital Sign Date Time Temp Pulse Resp B/P (MAP) Pulse Ox O2 Delivery O2 Flow Rate FiO2 06/11/24 09:00 98.4 69 14 129/76 (93) 98 98.4 06/10/24 20:00 Room Air* 0 21 Total Intake and Output 06/10/24 06/10/24 06/11/24 15:00 23:00 07:00 Intake Total 100 ml 500 ml 360 ml Balance 100 ml 500 ml 360 ml medications Current Medications Medications Dose Ordered Sig/Mary Ann Route Start Time Stop Time Status Last Admin Dose Admin Ceftriaxone Sodium 50 ml @ 100 mls/hr DAILY@09 IV 06/11/24 09:00 06/11/24 09:34 100 MLS/HR Nitroglycerin 0.4 mg Q5MINP PRN SL 06/10/24 11:00 Morphine Sulfate 2 mg Q30M PRN IV 06/10/24 11:00 Potassium Chloride/Sodium Chloride 1,000 ml @ 75 mls/hr [id number] IV 06/10/24 15:15 06/10/24 16:16 75 MLS/HR Ondansetron HCl 4 mg Q6HPRN PRN IV 06/10/24 15:15 Diagnostic Test (Pha) 1 strip Q6HR 06/10/24 18:00 06/11/24 05:53 1 STRIP Insulin Human Regular Q6HR SC 06/10/24 18:00 06/11/24 05:53 4 UNITS Dextrose 50 ml UD PRN IV 06/10/24 15:15 Levothyroxine Sodium 50 mcg QAM@0600 PO 06/11/24 06:00 06/11/24 05:25 50 MCG Hydromorphone HCl 0.5 mg Q3HPRN PRN IV 06/10/24 20:00 06/10/24 20:42 0.5 MG Examination Physical Examination General: Patient alert and oriented in person, place and time. Patient following commands. HEENT: Normocephalic, atraumatic, moist mucous membranes Respiratory/pulmonary: Clear lungs bilaterally, no associated crackles or wheezes. Cardiovascular: Normal heart sounds S1 and S2 with no associated murmurs Abdomen: Abdomen nondistended, there is very , mild discomfort upon palpation to the abdomen at the incisions level, no palpable masses at this time. Extremities: There is no peripheral edema present at the lower extremities. Peripheral Pulses: 3+ Radial (R). 3+ Radial (L). 3+ Dorsalis pedis (R). 3+ Dorsalis pedis(L) Skin: No rashes or pruritus, there is no sacral edema present at this time. Neurological: Intact cranial nerves with no focal neurologic deficits laboratory and microbiology Laboratory Tests 06/11/24 07:35 Test 06/11/24 07:35 Range/Units Serum Glucose 240 H 74-106 mg/dL Problem List/Assessment/Plan Problem List/Assessment/Plan Assessment/Plan Acute on chronic cholecystitis, s/p laparoscopic cholecystectomy -status post laparoscopic cholecystectomy day 1 -patient reports very mild abdominal discomfort upon palpation which is normal after surgical intervention. -continue IV ceftriaxone -today, WBC was 11.0 -ordered physical therapy -advanced diet to pureed diet -patient tolerating diet without nausea or vomiting -stopped IV fluids at this time since patient is tolerating oral diet Primary hypertension -blood pressure has been in the lower side reason why no meds has been added. -we will monitor blood pressure Type 2 diabetes mellitus -Last hemoglobin A1c on 05/22/2024 was 6.8% -currently on mild sliding scale insulin -monitor blood glucose Hypothyroidism -TSH is 0.20 -ordered free T4 and free T3 -continue levothyroxine at 50 mcg q.a.m., we will adjust the dose based on free T4 and T3 Hyperlipidemia -last lipid panel showed hypertriglyceridemia -continue home atorvastatin 10 mg q.d. Nutrition -pureed diet Goals of care discussed with the patient at bedside for >23min, FULL CODE Plan discussed with Dr. Rowe Plan discussed with: Patient My Orders My Orders Orders - CHICHO MCDANIEL Procedure Category Date Status Time Pt Request For Service PT 06/11/24 Logged 09:49 Pureed DIET 06/11/24 Transmitted Lunch Date of Service: Jun 11, 2024 Billing Provider: ADRIANE ROWE MD Common Visit Codes: NOT BILLABLE CHICHO MCDANIEL Jun 11, 2024 11:04 ADRIANE ROWE MD Jun 11, 2024 21:41
[2024-06-11 11:41] LABS: Free T3 2.62 pg/mL (2.3-4.2)
[2024-06-11 11:42] LABS: Free T4 (Free Thyroxine) 1.94 ng/dL (0.89-1.76)
[2024-06-11] MEDS ORDERED: AUG875T PO (12:45)
[2024-06-11] MEDS ORDERED: IBUP1TAB5 PO (12:45)
[2024-06-11 13:00] VITALS: BP 100/64; PULSE 74; RESP 18; TEMP 98.3; O2SAT 97
--- NOTE | 2024-06-11 15:09 | DVHDSRES ---
Discharge Summary Date of Admission Resident Creating Document: CHICHO MCDANIEL RESIDENT Jun 10, 2024 at 10:58 Date of Discharge: Jun 11, 2024 Admitting Diagnosis Right upper quadrant pain Wounds: No wounds present at this time aside for three incision wounds for laparoscopic cholecystectomy which was performed on 06/10/24 Labs/Diagnostic Data: Laboratory Results Test 06/11/24 11:35 06/11/24 07:35 06/10/24 13:43 06/05/24 12:23 POC Glucose 285 mg/dl (70-106) White Blood Count 11.0 10^3/uL (4.4-10.8) Red Blood Count 3.62 10^6/uL (4.0-5.20) Hemoglobin 10.6 g/dL (12.2-16.2) Hematocrit 31.8 % (36.0-46.0) Mean Corpuscular Volume 87.7 fL (80.0-100.0) Mean Corpuscular Hemoglobin 29.3 pg (28.0-32.0) Mean Corpuscular Hemoglobin Concent 33.4 g/dL (32.0-36.0) Red Cell Distribution Width 13.9 % (11.8-14.3) Platelet Count 503 10^3/uL (140-450) Mean Platelet Volume 7.4 fL (6.9-10.8) Neutrophils (%) (Auto) 80.2 % (37.0-80.0) Lymphocytes (%) (Auto) 10.3 % (10.0-50.0) Monocytes (%) (Auto) 9.1 % (0.0-12.0) Eosinophils (%) (Auto) 0.0 % (0.0-7.0) Basophils (%) (Auto) 0.4 % (0.0-2.0) Neutrophils # (Auto) 8.8 10 ^3/uL (1.6-8.6) Lymphocytes # (Auto) 1.1 10 ^3/uL (0.4-5.4) Monocytes # (Auto) 1.0 10 ^3/uL (0-1.3) Eosinophils # (Auto) 0 10 ^3/uL (0-0.8) Basophils # (Auto) 0 10 ^3/uL (0-0.2) Nucleated Red Blood Cells 0.0 % Sodium Level 134 mmol/L (136-145) Potassium Level 4.2 mmol/L (3.5-5.1) Chloride Level 101 mmol/L (98-107) Carbon Dioxide Level 27 mmol/L (20-31) Anion Gap 6 (5-15) Blood Urea Nitrogen 10 mg/dL (9-23) Creatinine 0.82 mg/dL (0.550-1.02) Glomerular Filtration Rate Calc 75 mL/min (>90) BUN/Creatinine Ratio 12.2 (10.0-20.0) Serum Glucose 240 mg/dL (74-106) Calcium Level 9.2 mg/dL (8.7-10.4) Total Bilirubin 0.4 mg/dL (0.2-1.0) Aspartate Amino Transferase (AST) 35 U/L (13-40) Alanine Aminotransferase (ALT) 51 U/L (7-40) Alkaline Phosphatase 59 U/L (46-116) Total Protein 6.4 g/dL (5.7-8.2) Albumin 3.8 g/dL (3.2-4.8) Thyroid Stimulating Hormone (TSH) 0.20 uIU/mL (0.55-4.78) Free Thyroxine (T4) Calculated 1.94 ng/dL (0.89-1.76) Free Triiodothyronine (T3) pg/mL 2.62 pg/mL (2.3-4.2) Hepatitis B Surface Antigen Negative (Negative) Hepatitis C Antibody Negative (Negative) Prothrombin Time 10.6 sec (9.3-11.8) Prothrombin Time INR 1.00 (0.9-1.15) Activated Partial Thromboplast Time 25.1 SEC (24.5-34.5) Urine Color Light-yellow (Yellow) Urine Clarity Clear (Clear) Urine pH 5.5 (5.0-9.0) Urine Specific [place] 1.004 (1.001-1.035) Urine Protein Negative (Negative) Urine Ketones Negative (Negative) Urine Blood Negative /uL (Negative) Urine Nitrite Negative (Negative) Urine Bilirubin Negative (Negative) Urine Urobilinogen Normal mg/dL (Negative) Urine Leukocyte Esterase 3+ /uL (Negative) Urine RBC 4 /hpf (0 - 4) Urine WBC 23 /hpf (0 - 5) Urine Squamous Epithelial Cells Few /hpf (<5) Urine Bacteria None seen /hpf (None Seen) Urine Glucose Normal mg/dL (Normal) Other Laboratory Tests 06/11/24 07:35 Brief Hx & Hospital Course: This is a 73-year-old female with past medical history of hypertension, dyslipidemia, type 2 diabetes mellitus, hypothyroidism who presented to the ED was admitted for laparoscopic cholecystectomy due to cholelithiasis and chronic cholecystitis. At that time the patient denied any significant abdominal pain, nausea, vomiting or any other symptoms at that time. The patient underwent laparoscopic cholecystectomy on 06/10/2024 without further complications. The patient was started on IV ceftriaxone, levothyroxine 50 mcg q.a.m. and Dilaudid for pain. Patient was initially placed on full liquid diet. Today, patient was reevaluated on her S/P cholecystectomy day 1, patient denies any abdominal pain, shortness of breath, chest pain or any additional symptoms. The patient stated that she was tolerating liquid diet without any nausea or vomiting and was progress to pureed diet which she tolerated without complications. Patient is currently ambulating without difficulties and all labs were grossly unremarkable except for slightly elevated WBC at 11.0 which could be reactive after surgery. We will discharge the patient on Augmentin 875 mg b.i.d. for five days with ibuprofen 600 mg q.8 p.r.n. for four additional days. Patient was advised to follow up closely with her PCP in one week and in two weeks with the surgery. Patient agreed and understands the plan. ROS Constitutional: Denies weight loss, fever and chills. HEENT: Denies changes in vision and hearing. Respiratory: Denies shortness of breath and cough Cardiovascular: Denies chest discomfort or palpitations GI: Denies abdominal pain, nausea, vomiting and diarrhea. : Denies dysuria and urinary frequency. Musculoskeletal: Denies myalgias and joint pain Skin: Denies rash and pruritus. Neurological: Denies dizziness, headache, vision or hearing problems Physical Examination General: Patient alert and oriented in person, place and time. Patient following commands. HEENT: Normocephalic, atraumatic, moist mucous membranes Respiratory/pulmonary: Clear lungs bilaterally, vesicular murmurs present in almost all lung flores, no associated crackles or wheezes. Cardiovascular: Normal heart sounds S1 and S2 with no associated murmurs Abdomen: Abdomen nondistended, there is minimal discomfort at the incision were laparoscopic surgery took place. Small incisions are dry and clean without any signs of infection at this time. no palpable masses. Extremities: There is no peripheral edema present at the lower extremities. Peripheral Pulses: 3+ Radial (R). 3+ Radial (L). 3+ Dorsalis pedis (R). 3+ Dorsalis pedis(L) Skin: No rashes or pruritus, there is no sacral edema present at this time. Neurological: Intact cranial nerves with no focal neurologic deficits Consults/Reason for consult Surgery for cholecystectomy Operations or Procedures N/A Condition at Discharge: Stable Final Diagnosis/Problems List Acute on chronic cholecystitis, s/p laparoscopic cholecystectomy Primary hypertension Type 2 diabetes mellitus Hypothyroidism Hyperlipidemia Discharge Disposition: Home Discharge Instruct/Medications Diet: See Comment Diet comment: low fat diet. progress as tolerated Activity: No Restrictions, As Tolerated Follow Up/Referral: F/U with her PCP in 1 week F/U with surgery in 2 weeks Medications: augmentin 875mg BID for 5 days Ibuprophen 600mg Q8 PRN for 4 days Discharge Statement: "Patient was advised to return to the ER or call 911 if any headaches, dizziness, shortness of breath, chest pain, abdominal pain, bleeding, fevers, or worsening of medical condition. Patient was counseled about treatment plan, medications, possible side effects, patientverbalized understanding. All questions were answered to the best of my ability. This discharge took greater then 30 minutes in planning, reviewing documentation, counseling the patient, and discussing with other team members." ASSESSMENT ASSESSMENT Assessment Acute on chronic cholecystitis, s/p laparoscopic cholecystectomy Primary hypertension Type 2 diabetes mellitus Hypothyroidism Hyperlipidemia Date of Service: Jun 11, 2024 Billing Provider: ADRIANE SMITH MD Common Visit Codes: [id number] DISCH DAY >30min CHICHO MCDANIEL RESIDENT Jun 11, 2024 15:09 ADRIANE SMITH MD Jun 11, 2024 21:41
[2024-06-11] MEDS ORDERED: ATORVASTATIN 20 MG TAB PO SCH (22:00)
== END 2024-06-11 14:58 | disposition home or self-care (01) | DRG 419 ==
LOC: SUR 08:23 → WEST WING 10:58
PROVIDERS: ADMIT Internal Medicine Geriatric Medicine; ATTEND Internal Medicine Geriatric Medicine
PROC: 0FT44ZZ Resection of Gallbladder, Percutaneous Endoscopic Approach (ICD-10-PCS; principal; 2024-06-10 09:11)
DX: K80.10 Calculus of gallbladder with chronic cholecystitis without obstruction (principal); E78.5 Hyperlipidemia, unspecified; I10 Essential (primary) hypertension; E03.9 Hypothyroidism, unspecified; E11.9 Type 2 diabetes mellitus without complications; N73.6 Female pelvic peritoneal adhesions (postinfective); K76.0 Fatty (change of) liver, not elsewhere classified; E66.01 Morbid (severe) obesity due to excess calories; Z88.5 Allergy status to narcotic agent; Z68.32 Body mass index [BMI] 32.0-32.9, adult; Z79.899 Other long term (current) drug therapy
CPT/HCPCS: 36415; 80053; 81001; 82962; 84439; 84443; 84481; 85025; 85610; 85730; 86803; 86850; 86900; 86901; 87340; 97163; G0378; J1815; J2003

== ENCOUNTER → 2024-06-23 | Outpatient (CLI) | payer OTHER ==
[~2024-06-23] MED LIST changes: +AUG875T PO; +IBUP1TAB5 PO
[2024-06-23 09:51] LABS: Urine Bacteria None Seen /hpf (None Seen)
[2024-06-23 10:00] LABS: Basophils # (auto) 0.1 10 ^3/uL (0-0.2); Basophils % (auto) 1.1 % (0.0-2.0); Eosinophils # (auto) 0.1 10 ^3/uL (0-0.8); Eosinophils % (auto) 1.7 % (0.0-7.0); Hematocrit 33.1 % (36.0-46.0); Hemoglobin 11.3 g/dL (12.2-16.2); Lymphocytes # (auto) 1.5 10 ^3/uL (0.4-5.4); Lymphocytes % (auto) 21.3 % (10.0-50.0); Mean Corpuscular Hgb Conc. 34.2 g/dL (32.0-36.0); Mean Corpuscular Volume 87.8 fL (80.0-100.0); Monocytes # (auto) 0.6 10 ^3/uL (0-1.3); Monocytes % (auto) 8.5 % (0.0-12.0); Neutrophils # (auto) 4.6 10 ^3/uL (1.6-8.6); Neutrophils % (auto) 67.4 % (37.0-80.0); Platelet Count (auto) 614 10^3/uL (140-450); Red Blood Cells 3.77 10^6/uL (4.0-5.20); Red Cell Distribution Width 14.1 % (11.8-14.3); White Blood Cell 6.9 10^3/uL (4.4-10.8)
[2024-06-23 10:22] LABS: Urine Blood Negative /uL (Negative); Urine Clarity Clear (Clear); Urine Color Yellow (Yellow); Urine Protein, UAD TRACE (Negative); Urine Specific Gravity 1.017 (1.001-1.035); Urine Urobilinogen Normal (Negative); Urine WBC 1 /hpf (0 - 5); Urine pH 6.5 (5.0-9.0)
[2024-06-23 10:31] LABS: Creatinine, Urine 194.73 mg/dL (30.0-125.0)
[2024-06-23 10:32] LABS: Alanine Aminotransferase 23 U/L (7-40); Albumin 4.1 g/dL (3.2-4.8); Alkaline Phosphatase 75 U/L (46-116); Anion Gap 7 (5-15); Aspartate Aminotransferase 14 U/L (13-40); BUN/Creatinine Ratio 7.1 (10.0-20.0); Bilirubin, Total 0.5 mg/dL (0.2-1.0); Blood Urea Nitrogen 6 mg/dL (9-23); Calcium 9.9 mg/dL (8.7-10.4); Carbon Dioxide 28 mmol/L (20-31); Chloride 100 mmol/L (98-107); Cholesterol 123 mg/dL (< 200); Glucose 184 mg/dL (74-106); HDL Cholesterol 46 mg/dL (40-59); LDL Cholesterol 65 mg/dL (< 100); Potassium 4.5 mmol/L (3.5-5.1); Sodium 135 mmol/L (136-145); Total Protein 6.9 g/dL (5.7-8.2); Triglycerides 96 mg/dL (< 150)
[2024-06-23 10:34] LABS: Micro Albumin < 3.0 mg/L (<30.0)
[2024-06-23 16:54] LABS: Free T4 (Free Thyroxine) 1.92 ng/dL (0.89-1.76)
== END | disposition home or self-care (01) ==
LOC: LAB 09:29
DX: E11.9 Type 2 diabetes mellitus without complications (principal); E03.9 Hypothyroidism, unspecified; E55.9 Vitamin D deficiency, unspecified; Z79.899 Other long term (current) drug therapy
CPT/HCPCS: 36415; 80053; 80061; 81001; 82043; 82570; 82607; 83036; 84439; 84443; 85025; 87086

== ENCOUNTER → 2024-08-17 | Outpatient (CLI) | payer OTHER ==
[2024-08-17 09:44] LABS: Urine Bacteria None Seen /hpf (None Seen)
[2024-08-17 10:40] LABS: Eosinophils # (auto) 0.1 10 ^3/uL (0-0.8); Lymphocytes # (auto) 1.8 10 ^3/uL (0.4-5.4); Neutrophils # (auto) 3.4 10 ^3/uL (1.6-8.6); Red Blood Cells 4.25 10^6/uL (4.0-5.20)
[2024-08-17 10:43] LABS: Basophils # (auto) 0.2 10 ^3/uL (0-0.2); Basophils % (auto) 3.3 % (0.0-2.0); Eosinophils % (auto) 2.2 % (0.0-7.0); Hematocrit 37.2 % (36.0-46.0); Hemoglobin 12.3 g/dL (12.2-16.2); Lymphocytes % (auto) 30.6 % (10.0-50.0); Mean Corpuscular Hemoglobin 28.9 pg (28.0-32.0); Mean Corpuscular Hgb Conc. 33.1 g/dL (32.0-36.0); Mean Corpuscular Volume 87.4 fL (80.0-100.0); Monocytes # (auto) 0.5 10 ^3/uL (0-1.3); Monocytes % (auto) 7.6 % (0.0-12.0); Neutrophils % (auto) 56.3 % (37.0-80.0); Platelet Count (auto) 550 10^3/uL (140-450); Red Cell Distribution Width 14.6 % (11.8-14.3)
[2024-08-17 11:06] LABS: Alanine Aminotransferase 21 U/L (7-40); Albumin 4.4 g/dL (3.2-4.8); Alkaline Phosphatase 70 U/L (46-116); Anion Gap 7 (5-15); Aspartate Aminotransferase 20 U/L (13-40); BUN/Creatinine Ratio 7.7 (10.0-20.0); Calcium 9.8 mg/dL (8.7-10.4); Carbon Dioxide 30 mmol/L (20-31); Chloride 100 mmol/L (98-107); Cholesterol 137 mg/dL (< 200); HDL Cholesterol 57 mg/dL (40-59); LDL Cholesterol 71 mg/dL (< 100); Potassium 4.2 mmol/L (3.5-5.1); Sodium 137 mmol/L (136-145); Triglycerides 108 mg/dL (< 150)
[2024-08-17 11:07] LABS: Bilirubin, Total 0.5 mg/dL (0.2-1.0); Total Protein 7.5 g/dL (5.7-8.2)
[2024-08-17 11:10] LABS: Blood Urea Nitrogen 7 mg/dL (9-23); Glucose 152 mg/dL (74-106)
[2024-08-17 11:21] LABS: Creatinine, Urine 14.61 mg/dL (30.0-125.0)
[2024-08-17 11:27] LABS: Micro Albumin < 3.0 mg/L (<30.0); Microalb/Creat Ratio, Urine < 20.00
[2024-08-17 11:42] LABS: Free T4 (Free Thyroxine) 1.72 ng/dL (0.89-1.76)
[2024-08-17 12:28] LABS: Urine Blood Negative /uL (Negative); Urine Clarity Clear (Clear); Urine Color Colorless (Yellow); Urine Protein, UAD Negative (Negative); Urine Specific Gravity 1.005 (1.001-1.035); Urine Squamous Epithelial Cell FEW /hpf (<5); Urine Urobilinogen Normal (Negative); Urine WBC 1 /hpf (0 - 5)
== END | disposition home or self-care (01) ==
LOC: LAB 09:24
DX: E11.9 Type 2 diabetes mellitus without complications (principal); E55.9 Vitamin D deficiency, unspecified; E03.9 Hypothyroidism, unspecified; E78.5 Hyperlipidemia, unspecified; E11.29 Type 2 diabetes mellitus with other diabetic kidney complication; R79.89 Other specified abnormal findings of blood chemistry
CPT/HCPCS: 36415; 80053; 80061; 81001; 82043; 82306; 82570; 82607; 84439; 84443; 85025

== ENCOUNTER 2024-11-19 10:15 | Emergency (ER) | payer OTHER, MEDICAID ==
[~2024-11-19] VITALS: Ht 149.9 cm; Wt 65.3 kg
[2024-11-19 11:40] VITALS: BP 101/56; PULSE 91; RESP 21; TEMP 97.5; O2SAT 96
--- NOTE | 2024-11-19 12:32 | DVH ---
EXAM: XY CHEST TWO VIEWS ROUTINE CLINICAL HISTORY: Trauma COMPARISON: None TECHNIQUE: Frontal and lateral view of the chest was obtained FINDINGS: Lines and Tubes: None Lungs: No focal consolidation. Pleura: No effusion. No pneumothorax. Cardiomediastinal contours: Unremarkable Bones: No acute osseous abnormality. IMPRESSION: No acute cardiopulmonary disease.
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
--- NOTE | 2024-11-19 12:39 | DVH ---
CLINICAL INDICATION: Trauma TECHNIQUE: 3 radiographic views of the left wrist were obtained. Comparison: None FINDINGS/IMPRESSION: There is no evidence of acute fracture or dislocation. The visualized joint space is well maintained. The alignment is anatomical. There is no radiopaque foreign body.
[2024-11-19] MEDS ORDERED: ACET-1304 PO (12:50)
--- NOTE | 2024-11-19 18:57 | ECG ---
[facility] Test Date: 2024-11-19 Test Time: 10:32:09 Pat Name: MICHELLE JONES Department: ER Room: Gender: F Quality Technician: JOELLE : 1950 Requested By: EMERGENCY EMERGENCY Order Number: [id number] Reading MD: Thai Flores Measurements Intervals [place] Rate: 82 P: 10 CO: 154 QRS: 62 QRSD: 86 T: 33 QT: 380 QTc: 444 Interpretive Statements Sinus rhythm Baseline wander in lead(s) V2 Electronically Signed On 11-20-2024 13:44:34 PDT by Thai Flores Please click the below link to view image of tracing.
== END 2024-11-19 12:55 | disposition home or self-care (01) ==
LOC: ER 10:15
DX: S63.502A Unspecified sprain of left wrist, initial encounter (principal); S29.011A Strain of muscle and tendon of front wall of thorax, initial encounter; I10 Essential (primary) hypertension; E11.9 Type 2 diabetes mellitus without complications; Z79.84 Long term (current) use of oral hypoglycemic drugs; Z79.899 Other long term (current) drug therapy; Z88.2 Allergy status to sulfonamides; Z88.5 Allergy status to narcotic agent; W19.XXXA Unspecified fall, initial encounter; Y93.89 Activity, other specified; Y92.89 Other specified places as the place of occurrence of the external cause; Y99.8 Other external cause status
CPT/HCPCS: 71046; 73110; 93005

== ENCOUNTER → 2024-11-27 | Outpatient (CLI) | payer OTHER, MEDICAID ==
[~2024-11-27] MED LIST changes: +ACET-1304 PO
[2024-11-27 08:53] LABS: Urine Bacteria None Seen /hpf (None Seen)
[2024-11-27 09:08] LABS: Basophils # (auto) 0.1 10 ^3/uL (0-0.2); Eosinophils # (auto) 0.1 10 ^3/uL (0-0.8); Eosinophils % (auto) 2.1 % (0.0-7.0); Hemoglobin 12.6 g/dL (12.2-16.2); Lymphocytes # (auto) 1.5 10 ^3/uL (0.4-5.4); Mean Corpuscular Hgb Conc. 33.9 g/dL (32.0-36.0); Monocytes # (auto) 0.5 10 ^3/uL (0-1.3)
[2024-11-27 09:10] LABS: Basophils % (auto) 0.9 % (0.0-2.0); Hematocrit 37.2 % (36.0-46.0); Lymphocytes % (auto) 23.3 % (10.0-50.0); Mean Corpuscular Hemoglobin 28.9 pg (28.0-32.0); Mean Corpuscular Volume 85.3 fL (80.0-100.0); Monocytes % (auto) 7.3 % (0.0-12.0); Neutrophils # (auto) 4.2 10 ^3/uL (1.6-8.6); Neutrophils % (auto) 66.4 % (37.0-80.0); Nucleated Red Blood Cells % 0.2 %; Platelet Count (auto) 594 10^3/uL (140-450); Red Blood Cells 4.36 10^6/uL (4.0-5.20); Red Cell Distribution Width 14.8 % (11.8-14.3); White Blood Cell 6.3 10^3/uL (4.4-10.8)
[2024-11-27 09:16] LABS: Urine Blood Negative /uL (Negative); Urine Clarity Clear (Clear); Urine Color Colorless (Yellow); Urine Hyaline Cast FEW /lpf (0 - 2); Urine Protein, UAD Negative (Negative); Urine Specific Gravity 1.008 (1.001-1.035); Urine Squamous Epithelial Cell None Seen /hpf (<5); Urine Urobilinogen Normal (Negative); Urine WBC 2 /HPF (0-5)
[2024-11-27 09:23] LABS: Creatinine, Urine 21.07 mg/dL (30.0-125.0)
[2024-11-27 09:24] LABS: Alanine Aminotransferase 18 U/L (7-40); Alkaline Phosphatase 68 U/L (46-116); Anion Gap 9 (5-15); BUN/Creatinine Ratio 10.5 (10.0-20.0); Blood Urea Nitrogen 10 mg/dL (9-23); Calcium 9.9 mg/dL (8.7-10.4); Carbon Dioxide 26 mmol/L (20-31); Chloride 100 mmol/L (98-107); LDL Cholesterol 78 mg/dL (< 100); Potassium 4.1 mmol/L (3.5-5.1); Total Protein 7.7 g/dL (5.7-8.2); Triglycerides 145 mg/dL (< 150)
[2024-11-27 09:25] LABS: Albumin 4.5 g/dL (3.2-4.8); Aspartate Aminotransferase 14 U/L (13-40); Bilirubin, Total 0.4 mg/dL (0.2-1.0); Cholesterol 145 mg/dL (< 200); HDL Cholesterol 48 mg/dL (40-59)
[2024-11-27 09:26] LABS: Glucose 153 mg/dL (74-106); Sodium 135 mmol/L (136-145)
[2024-11-27 09:34] LABS: Micro Albumin < 3.0 mg/L (<30.0)
[2024-11-27 10:26] LABS: Ferritin 28.1 ng/mL (10-291); Free T4 (Free Thyroxine) 1.62 ng/dL (0.89-1.76)
== END | disposition home or self-care (01) ==
LOC: LAB 08:15
PROVIDERS: ATTEND Nurse Practitioner Family
DX: I10 Essential (primary) hypertension (principal); E11.9 Type 2 diabetes mellitus without complications; E78.5 Hyperlipidemia, unspecified; E55.9 Vitamin D deficiency, unspecified; E03.9 Hypothyroidism, unspecified; D64.9 Anemia, unspecified; R19.7 Diarrhea, unspecified
CPT/HCPCS: 36415; 80053; 80061; 81001; 82043; 82570; 82607; 82728; 83036; 83540; 83550; 84439; 84443; 85025; 86376; 86704; 86706; 86708; 86803; 87045; 87177; 87340; 87427; 87493

== ENCOUNTER → 2024-12-23 | Outpatient (CLI) | payer OTHER, MEDICAID ==
[2024-12-23 10:59] LABS: Urine Blood Negative /uL (Negative); Urine Clarity Clear (Clear); Urine Color Yellow (Yellow); Urine Protein, UAD Negative (Negative); Urine Specific Gravity 1.014 (1.001-1.035); Urine Urobilinogen Normal (Negative)
== END | disposition home or self-care (01) ==
LOC: LAB 10:45
PROVIDERS: ATTEND Nurse Practitioner Family
DX: N39.0 Urinary tract infection, site not specified (principal)
CPT/HCPCS: 81003; 87086

== ENCOUNTER 2025-01-26 09:19 | Outpatient (CLI) | payer OTHER, MEDICAID ==
[2025-01-26 09:36] LABS: Urine Bacteria None Seen /hpf (None Seen)
[2025-01-26 09:49] LABS: Basophils # (auto) 0.1 10 ^3/uL (0-0.2); Basophils % (auto) 1.1 % (0.0-2.0); Eosinophils # (auto) 0.1 10 ^3/uL (0-0.8); Eosinophils % (auto) 1.8 % (0.0-7.0); Hematocrit 34.2 % (36.0-46.0); Hemoglobin 11.6 g/dL (12.2-16.2); Lymphocytes # (auto) 1.2 10 ^3/uL (0.4-5.4); Lymphocytes % (auto) 17.9 % (10.0-50.0); Mean Corpuscular Hemoglobin 28.9 pg (28.0-32.0); Mean Corpuscular Volume 84.8 fL (80.0-100.0); Monocytes # (auto) 0.6 10 ^3/uL (0-1.3); Monocytes % (auto) 8.5 % (0.0-12.0); Neutrophils # (auto) 4.6 10 ^3/uL (1.6-8.6); Neutrophils % (auto) 70.7 % (37.0-80.0); Platelet Count (auto) 631 10^3/uL (140-450); Red Blood Cells 4.03 10^6/uL (4.0-5.20); White Blood Cell 6.5 10^3/uL (4.4-10.8)
[2025-01-26 10:08] LABS: Urine Blood Negative /uL (Negative); Urine Clarity Clear (Clear); Urine Color Light-Yellow (Yellow); Urine Hyaline Cast FEW /lpf (0 - 2); Urine Protein, UAD Negative (Negative); Urine Specific Gravity 1.007 (1.001-1.035); Urine Squamous Epithelial Cell FEW /hpf (<5); Urine Urobilinogen Normal (Negative); Urine WBC 3 /HPF (0-5); Urine pH 6.5 (5.0-9.0)
[2025-01-26 10:28] LABS: Alanine Aminotransferase 15 U/L (7-40); Albumin 4.5 g/dL (3.2-4.8); Alkaline Phosphatase 62 U/L (46-116); Anion Gap 9 (5-15); Aspartate Aminotransferase 15 U/L (<34); BUN/Creatinine Ratio 9.6 (10.0-20.0); Carbon Dioxide 29 mmol/L (20-31); Chloride 98 mmol/L (98-107); Cholesterol 122 mg/dL (< 200); HDL Cholesterol 47 mg/dL (40-59); LDL Cholesterol 65 mg/dL (< 100); Potassium 4.5 mmol/L (3.5-5.1); Sodium 136 mmol/L (136-145); Total Protein 7.5 g/dL (5.7-8.2); Triglycerides 114 mg/dL (< 150)
[2025-01-26 10:29] LABS: Bilirubin, Total 0.6 mg/dL (0.2-1.0); Blood Urea Nitrogen 8 mg/dL (9-23); Glucose 145 mg/dL (74-106)
== END 2025-01-26 17:00 | disposition home or self-care (01) ==
LOC: LAB 09:19
PROVIDERS: ATTEND Nurse Practitioner Family
DX: I10 Essential (primary) hypertension (principal); E78.5 Hyperlipidemia, unspecified; E55.9 Vitamin D deficiency, unspecified; E03.9 Hypothyroidism, unspecified; E11.9 Type 2 diabetes mellitus without complications; M79.672 Pain in left foot
CPT/HCPCS: 36415; 80053; 80061; 81001; 82306; 83036; 84439; 84443; 84550; 85025

== ENCOUNTER → 2025-02-19 | Day surgery (SDC) | payer OTHER, MEDICAID ==
[2025-02-16 12:34] LABS: Alanine Aminotransferase 14 U/L (7-40); Albumin 4.3 g/dL (3.2-4.8); Alkaline Phosphatase 78 U/L (46-116); Anion Gap 7 (5-15); BUN/Creatinine Ratio 13.2 (10.0-20.0); Blood Urea Nitrogen 12 mg/dL (9-23); Calcium 9.7 mg/dL (8.7-10.4); Carbon Dioxide 27 mmol/L (20-31); Chloride 99 mmol/L (98-107); Potassium 4.3 mmol/L (3.5-5.1); Total Protein 7.1 g/dL (5.7-8.2)
[2025-02-16 12:35] LABS: Bilirubin, Total 0.4 mg/dL (0.2-1.0); Glucose 158 mg/dL (74-106); Sodium 133 mmol/L (136-145)
[2025-02-16 12:41] LABS: Hematocrit 35.0 % (36.0-46.0); Hemoglobin 11.6 g/dL (12.2-16.2); Mean Corpuscular Hemoglobin 28.6 pg (28.0-32.0); Mean Corpuscular Volume 86.5 fL (80.0-100.0); Nucleated Red Blood Cells % 0.0 %
[2025-02-16 12:44] LABS: Urine Protein, UAD Negative (Negative)
[2025-02-16 12:56] LABS: INR 1.02 (0.9-1.15); Partial Thromboplastin Time 25.6 SEC (24.5-34.5); Prothrombin Time 10.8 sec (9.3-11.8)
[~2025-02-19] VITALS: Ht 149.9 cm; Wt 64.4 kg
[~2025-02-19] MED LIST changes: +LIDOCAINE 2% (LOCAL ANESTH.) PF 5ml SDV ONE; +PROPOFOL 10 MG/ML 20 ML IV ONE
[2025-02-19 11:42] VITALS: PULSE 78; RESP 16; TEMP 97.9; O2SAT 100
--- NOTE | 2025-02-19 11:46 | DVHOP2 ---
Operative Report DATE OF OPERATION: 02/19/25 PROCEDURE: Colonoscopy with hot snare polypectomy. PREOPERATIVE INDICATION: The patient is a 74 -year-old female undergoing colonoscopy for colon cancer screening with change in bowel habits increasing constipation POSTOPERATIVE DIAGNOSES: 1. There were two less than 1 cm benign-appearing sigmoid polyps that were seen and removed by hot snare polypectomy and the specimens were retrieved 2. There was a 2 mm benign-appearing cecal polyp that was seen and removed by cold biopsy forceps 3. 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 Trace to 1+ internal hemorrhoids otherwise normal examination up to the cecum PROCEDURE PERFORMED BY: Bea Ortiz M.D. SCOPE: Olympus videocolonoscope. ASA CLASS: 3. PREOPERATIVE MEDICATIONS: Rhys Espino PROCEDURE IN DETAIL: After obtaining an informed consent, the patient was placed on left lateral decubitus position. She was then sedated with the above medications. A rectal examination was performed that was normal. The colonoscope was then passed through the anus into the rectosigmoid and through the descending, transverse, and ascending colon up to the cecum with visualization of the appendiceal orifice, base of the cecum and the ileocecal valve. The colonoscope was then withdrawn. In the base of the cecum there was a 2 mm polyp which was removed by cold biopsy forceps There were no masses or colitis. Patient did have moderate sigmoid diverticular disease with sigmoid muscular hypertrophy In the sigmoid colon there were two less than 1 cm benign-appearing polyps that were seen and removed by hot snare polypectomy and the specimens were retrieved On retroflexion and straight on view the patient had trace to 1+ internal hemorrhoids The patient tolerated the procedure well without difficulty. WITHDRAWAL TIME: 7 minute QUALITY OF THE PREP: [place] Bowel Prep score: 8 COMPLICATIONS : None SPECIMENS: Sigmoid polyps x2 Cecal polyp DISPOSITION: Stable D/C to home PLAN: 1. Repeat colonoscopy base on biopsy result likely in three years 2. Resume GI soft diet advance as tolerated 3. Increase fluid and fiber intake 4. Outpatient follow up with me in 4-6 weeks to review results and discuss further management BEA ORTIZ MD Feb 19, 2025 11:46
--- NOTE | 2025-02-19 12:26 | DVHOP2 ---
Operative Report DATE OF OPERATION: 02/19/25 PROCEDURE: Upper Endoscopy with biopsy PREOPERATIVE INDICATION: The patient is a 74 -year-old female undergoing endoscopy for epigastric pain and dyspepsia POSTOPERATIVE DIAGNOSES: 1. Patient had a 1-2 cm sliding-type hiatal hernia with slightly irregular squamocolumnar junction no significant esophagitis and GE junction biopsies were obtained 2. Minimal gastritis otherwise normal examination up to the 2nd and 3rd part of the duodenum PROCEDURE PERFORMED BY: Bea Ortiz GI NURSE: Renate SCOPE: Olympus videoendoscope. ASA CLASS: 3. PREOPERATIVE MEDICATIONS: Mac sedation Rhys Jameel PROCEDURE IN DETAIL: After obtaining an informed consent, the patient was placed on left lateral decubitus position. The patient was then sedated with the above medications. A bite block was placed between her teeth. The endoscope was then passed through the oropharynx, into the esophagus, and through the stomach and pylorus up to the second and third part of the duodenum. The endoscope was then withdrawn. The 2nd and 3rd part of the duodenal and the duodenal bulb were normal. Duodenal biopsies were obtained The pre-pyloric area antrum and body showed minimal gastritis. Gastric biopsies were obtained. On retroflexion the fundus and cardia and angularis were normal. The endoscope was then withdrawn into distal esophagus Patient had a 1-2 cm sliding-type hiatal hernia with slightly irregular squamocolumnar junction no significant erosive esophagitis GE junction biopsies were obtained. The remaining distal and proximal esophagus and oropharynx were unremarkable The patient tolerated the procedure well without difficulty. COMPLICATIONS : None SPECIMENS: Duodenal biopsies Gastric biopsies GE junction biopsies DISPOSITION: Stable D/C to home PLAN: 1. Await for biopsy result 2. Will place pt on Protonix 20 mg p.o. daily 3. Resume GI soft diet advance as tolerated 4. Outpatient follow up with me in 4-6 weeks to review results and discuss [facility] management BEA ORTIZ MD Feb 19, 2025 12:26
[2025-02-19 12:32] VITALS: BP 122/64; PULSE 69; RESP 18; O2SAT 98
== END | disposition home or self-care (01) ==
LOC: GI 10:02 → EDUNIT# 12:30
PROVIDERS: ATTEND Internal Medicine Gastroenterology
DX: R19.4 Change in bowel habit (principal); D12.0 Benign neoplasm of cecum; D12.5 Benign neoplasm of sigmoid colon; K63.89 Other specified diseases of intestine; K64.0 First degree hemorrhoids; K44.9 Diaphragmatic hernia without obstruction or gangrene; K57.30 Diverticulosis of large intestine without perforation or abscess without bleeding; K29.50 Unspecified chronic gastritis without bleeding; E78.5 Hyperlipidemia, unspecified; I10 Essential (primary) hypertension; E11.9 Type 2 diabetes mellitus without complications; Z79.899 Other long term (current) drug therapy; Z79.84 Long term (current) use of oral hypoglycemic drugs; Z98.890 Other specified postprocedural states
CPT/HCPCS: 36415; 43239; 45380; 45385; 80053; 81001; 82962; 85025; 85610; 85730; J2003; J2704; J7030

== ENCOUNTER 2025-02-25 09:52 | Outpatient (CLI) | payer OTHER, MEDICAID ==
[~2025-02-25 09:52] MED LIST changes: -LIDOCAINE 2% (LOCAL ANESTH.) PF 5ml SDV ONE; -PROPOFOL 10 MG/ML 20 ML IV ONE
[2025-02-25 10:28] LABS: Hematocrit 34.5 % (36.0-46.0); Hemoglobin 11.6 g/dL (12.2-16.2); Mean Corpuscular Hemoglobin 29.1 pg (28.0-32.0); Mean Corpuscular Volume 86.6 fL (80.0-100.0); Nucleated Red Blood Cells % 0.0 %
[2025-02-25 11:13] LABS: Alanine Aminotransferase 16 U/L (7-40); Albumin 4.3 g/dL (3.2-4.8); Alkaline Phosphatase 87 U/L (46-116); Anion Gap 11 (5-15); BUN/Creatinine Ratio 9.5 (10.0-20.0); Calcium 9.6 mg/dL (8.7-10.4); Carbon Dioxide 26 mmol/L (20-31); Potassium 4.3 mmol/L (3.5-5.1); Total Protein 7.0 g/dL (5.7-8.2)
[2025-02-25 11:14] LABS: Bilirubin, Total 0.4 mg/dL (0.2-1.0); Blood Urea Nitrogen 9 mg/dL (9-23); Chloride 96 mmol/L (98-107); Glucose 198 mg/dL (74-106); Sodium 133 mmol/L (136-145)
== END 2025-02-25 17:00 | disposition home or self-care (01) ==
LOC: LAB 09:52
PROVIDERS: ATTEND Internal Medicine Rheumatology
DX: E55.9 Vitamin D deficiency, unspecified (principal); M81.0 Age-related osteoporosis without current pathological fracture; Z79.899 Other long term (current) drug therapy
CPT/HCPCS: 36415; 80053; 82306; 85025

== ENCOUNTER → 2025-03-24 | Day surgery (SDC) | payer OTHER, MEDICAID ==
[2025-03-19 14:03] LABS: Hemoglobin 11.4 g/dL (12.2-16.2); Mean Corpuscular Volume 85.8 fL (80.0-100.0); Nucleated Red Blood Cells % 0.1 %
[2025-03-19 14:05] LABS: Hematocrit 33.6 % (36.0-46.0); Mean Corpuscular Hemoglobin 29.2 pg (28.0-32.0)
[2025-03-19 14:09] LABS: Urine Protein, UAD Negative (Negative)
[2025-03-19 14:15] LABS: INR 1.01 (0.9-1.15); Partial Thromboplastin Time 25.5 SEC (24.5-34.5); Prothrombin Time 10.7 sec (9.3-11.8)
[2025-03-19 14:25] LABS: Alanine Aminotransferase 19 U/L (7-40); Albumin 4.2 g/dL (3.2-4.8); Alkaline Phosphatase 86 U/L (46-116); Anion Gap 7 (5-15); BUN/Creatinine Ratio 8.6 (10.0-20.0); Calcium 8.8 mg/dL (8.7-10.4); Carbon Dioxide 28 mmol/L (20-31); Potassium 4.4 mmol/L (3.5-5.1); Total Protein 6.8 g/dL (5.7-8.2)
[2025-03-19 14:26] LABS: Bilirubin, Total 0.4 mg/dL (0.2-1.0); Blood Urea Nitrogen 8 mg/dL (9-23); Chloride 96 mmol/L (98-107); Glucose 205 mg/dL (74-106); Sodium 131 mmol/L (136-145)
[~2025-03-24] VITALS: Ht 149.9 cm; Wt 64.9 kg
[~2025-03-24] MED LIST changes: -ACET-1304 PO; -ALEN70TA74 PO; -AUG875T PO; +CALC1TAB92 PO; +CELE200C PO; +FLUMAZENIL 0.1 MG/ML INJ 10ML MDV IV PRN; +GLYCOPYRROLATE 0.2 MG/ML 1ML VIAL ONE; +HYDR-4902 PO; +HYDROmorphone HCL 2 MG/ML VL/or syr IV PRN; -IBUP1TAB5 PO; +KETAMINE 50mg/ML 1ml syringe ONE; +KETOROLAC TROMETH 30 MG/ML 1ML VIAL ONE; +LIDOCAINE 1% INJ PF 5ML AMP ONE; +MAGN400T40 PO; +MECL12.586 PO; +METH-1181 PO; +METO5TAB87 PO; +MULT-1018 PO; +NALOXONE HCL 0.4 MG/ML VIAL IV PRN; +ONDANSETRON HCL 4 MG/2 ML VIAL IV PRN; +ONDANSETRON HCL 4 MG/2 ML VIAL ONE; +PEN400T PO; +PROPOFOL 10 MG/ML 20 ML IV ONE; +ROMO105I SC; +TURM500C3 OR; +ceFAZolin 2 GM/D5W50ml 50 ML IV ONE; +fentaNYL CITRATE 100 MCG/2 ML VL IV PRN; +hydrALAZINE HCL 20 MG/ML VL IV PRN
[2025-03-24] MEDS: BUPIVACAINE 0.5% P/F INJ 10 ML VIAL ONE (13:13)
[2025-03-24 13:21] VITALS: O2SAT 100
--- NOTE | 2025-03-24 13:34 | DVHOP2 ---
Operative Report - 2 Report Details Date: 03/24/25 Preop Diagnosis: 1. Right foot dorsal exostectomy 2. Right foot pain Postop Diagnosis: Same as preop Surgeon: Jair Ceron MD Anesthesiologist: See anesthesia Anesthesia: Mac Consent: The patient was informed of the risks and benefits of the procedure. These include but are not limited to complications of anesthesia, postoperative infection, incomplete relief of symptoms, recurrence of symptoms, damage to blood vessels, nerves and tendons, deep venous thrombosis, pulmonary embolism and possible need for repeat surgery in the future. Complications: None Estimated Blood Loss: Minimal Fluids: See anesthesia Findings: Consistent with diagnosis Indications for Surgery: Worsening foot pain Name of Procedure Performed 1. Right midfoot exostectomy (09363) 2. Right foot midfoot nerve decompression (15375) Procedure Details Procedure Details: PRE-PROCEDURE INFORMATION: In the pre-op holding area, the extremity to be operated on was clearly marked and the patient verified correct laterality of t he marking. The patient was transferred to the OR table and placed in a supine position. A timeout was performed in which identification of the correct patient, procedure, location, and materials was done. The right foot and leg were prepped and draped in normal sterile fashion. DESCRIPTION OF PROCEDURE: Attention was directed to the l right dorsal foot where the exostosis was located. A stab incision was made just medial to the exostosis. The incision was deepened through blunt and sharp dissection. Care was taken to avoid any neurovascular and tendinous structures. Using the Arthrex MIS bur, the exostosis was then removed in its entirety. Decompression of the dorsal nerve was then achieved using a Bernard elevator to remove any scar tissue that was over the exostosis. After the bur was used the exostosis was no longer felt clinically. The incision was closed with a 4-0 nylon. All surgical wounds were irrigated copiously with saline and closed in layers with the aforementioned suture material. A dry sterile dressing was placed on the surgical extremity. The patient was placed in a postop shoe POSTOPERATIVE INFORMATION: The patient tolerated the above noted procedure and anesthesia well and was transferred to the PACU with vital signs stable, and vascular status intact with capillary refill intact to all digits. Postoperative instructions reviewed in detail with the patient with written instructions provided. Patient will return to clinic in approximately 10-14 days for first postoperative visit. Patient has the number of the clinic and was instructed to call prior to that time should any problems, questions, or concerns arise. Condition Good Disposition Home Visit Coding Podiatry Date of Service if different f: Mar 24, 2025 Billing Provider: JAIR CERON DPM Podiatry Common Visit Codes: PROCEDURE ONLY JAIR CERON DPM Mar 24, 2025 13:34
[2025-03-24 13:57] VITALS: BP 124/62; PULSE 69; RESP 16; O2SAT 97
== END | disposition home or self-care (01) ==
LOC: SUR 10:21
PROVIDERS: ATTEND Podiatrist
DX: M89.8X7 Other specified disorders of bone, ankle and foot (principal); M72.2 Plantar fascial fibromatosis; I10 Essential (primary) hypertension; E66.3 Overweight; E11.40 Type 2 diabetes mellitus with diabetic neuropathy, unspecified; E03.9 Hypothyroidism, unspecified; E78.00 Pure hypercholesterolemia, unspecified; Z86.2 Personal history of diseases of the blood and blood-forming organs and certain disorders involving the immune mechanism; Z88.2 Allergy status to sulfonamides; Z88.5 Allergy status to narcotic agent; Z90.710 Acquired absence of both cervix and uterus; Z68.28 Body mass index [BMI] 28.0-28.9, adult; Z98.890 Other specified postprocedural states
CPT/HCPCS: 28104; 36415; 80053; 81001; 82962; 85025; 85610; 85730; J0690; J1100; J1885; J2405; J2704; J3490

== ENCOUNTER 2025-03-25 08:22 | Emergency (ER) | payer OTHER, MEDICAID ==
[~2025-03-25] VITALS: Ht 149.9 cm; Wt 66.9 kg
[~2025-03-25 08:22] MED LIST changes: -FLUMAZENIL 0.1 MG/ML INJ 10ML MDV IV PRN; -GLYCOPYRROLATE 0.2 MG/ML 1ML VIAL ONE; -HYDROmorphone HCL 2 MG/ML VL/or syr IV PRN; -KETAMINE 50mg/ML 1ml syringe ONE; -KETOROLAC TROMETH 30 MG/ML 1ML VIAL ONE; -LIDOCAINE 1% INJ PF 5ML AMP ONE; -NALOXONE HCL 0.4 MG/ML VIAL IV PRN; -ONDANSETRON HCL 4 MG/2 ML VIAL IV PRN; -ONDANSETRON HCL 4 MG/2 ML VIAL ONE; -PROPOFOL 10 MG/ML 20 ML IV ONE; -ceFAZolin 2 GM/D5W50ml 50 ML IV ONE; -fentaNYL CITRATE 100 MCG/2 ML VL IV PRN; -hydrALAZINE HCL 20 MG/ML VL IV PRN
--- NOTE | 2025-03-25 09:03 | ED.PDOC ---
Yumiko. trauma (HPI) HPI Comments A 74 YEAR OLD FEMALE PRESENTS TO THE ED WITH COMPLAINT OF RIGHT WRIST PAIN AND HEADACHE S/P FALL. PATIENT STATES SHE ACCIDENTALLY SLIPPED ON WATER 2 DAYS AGO AND FELL. PATIENT REPORTS SHE HIT HER HEAD ON A CAR AND INJURED HER RIGHT WRIST WHEN SHE FELL. PATIENT REPORTS SHE IS NOW EXPERIENCING A HEADACHE AND RIGHT WRIST PAIN THAT IS WORSE WITH MOVEMENT. PATIENT DENIES NECK INJURY, LOC, VISION CHANGES, FEVER, CHILLS, SHORTNESS OF BREATH, CHEST PAIN, ABDOMINAL PAIN, NAUSEA, VOMITING, OR OTHER COMPLAINTS. NO OTHER SYMPTOMS OR MODIFYING FACTORS AT THIS TIME. PATIENT IS ALERT, ORIENTED X 4, AND HAS STEADY GAIT. Chief Complaint: Fall Injury Time Seen by MD: 08:42 Primary Care Provider: UNKNOWN Reviewed notes: Nurses Notes, Medications, Allergies Allergies: Coded Allergies: Sulfa Antibiotics (Verified Allergy, Severe, 05/06/24) Codeine (Verified Allergy, Unknown, 05/06/24) Home Meds Reported Medications Metoclopramide HCl (Metoclopramide Hydrochlor) 5 Mg Tab, 5 MG PO, TAB 03/19/25 Meclizine Hcl (Meclizine Hcl) 12.5 Mg Tab, 1 TAB PO TID, #30 TAB 03/19/25 Calcium Carbonate (Calcium) 600 Mg Tab, 600 MG PO, TAB 03/19/25 Multiple Vitamin (Multivitamins) Tab, 1 TAB PO DAILY, #30 TAB 2 Refills 03/19/25 Curcuma Longa (Turmeric) Extra (TURMERIC) 500 Mg Cap, 500 MG OR, CAP 03/19/25 Romosozumab-Aqqg (Evenity) 105 Mg/1.17 Ml Inj, 105 MG SC, INJ 03/19/25 Magnesium Oxide (MAGNESIUM OXIDE) 400 Mg Tab, 1 TAB PO DAILY, #90 TAB 3 Refills 03/19/25 Methocarbamol (Methocarbamol) 500 Mg Tab, 500 MG PO, TAB 03/19/25 Hydrocodone-Acetaminophen (Hydrocodone Bitartrate/AC 5-325 mg) 1 Tab Tab, 1 TAB PO, TAB 03/19/25 Celecoxib (Celebrex) 200 Mg Cap, 1 CAP PO DAILY, #30 CAP 03/19/25 Pentoxifylline (TRENTAL ER TABLET) 400 Mg Tb, 400 MG PO BID, TAB 03/19/25 Gabapentin (Gabapentin) Unknown Strength Cap, PO, CAP 11/4/24 Benazepril Hcl (LOTENSIN TABLET) Unknown Strength Tb, PO DAILY, TAB 06/08/24 Levothyroxine Sodium (Levothyroxine Sodium) 50 Mcg Tab, 1 TAB PO QAM 01/13/24 Furosemide (Furosemide) 20 Mg Tab, 1 TAB PO DAILY 01/13/24 Amlodipine Besylate (Amlodipine Besylate) 10 Mg Tab, 1 TAB PO DAILY 01/13/24 Metformin Hydrochloride (Metformin Hcl) 1,000 Mg Tab, 1 TAB PO BID 01/13/24 Insulin Glargine (Lantus Solostar) 100 Unit/Ml Inj, 30 UNIT SC QAM 01/13/24 Pantoprazole Sodium Sesquihydr (Pantoprazole Sodium) 40 Mg Tab, 1 TAB PO DAILY 01/13/24 Atorvastatin Calcium (ATORVASTATIN CALCIUM) 10 Mg Tab, 1 TAB PO DAILY 01/13/24 Information Source: Patient Mode of Arrival: Ambulatory Severity: Moderate Timing: Days Duration: Since onset, Days Prehospital treatment: None Location: Head, (R) Wrist Location of laceration: None Mechanism: Fall Associated signs and symtoms: Headache Past Medical History PAST MEDICAL HISTORY: DM, HTN Surgical History: Denies all surgeries 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 Family History Family History: Reviewed,noncontributory to illness Social History Smoker: Non-Smoker Alcohol: Denies ETOH Use Drugs: Denies Drug Use Lives In: Home Constitutional: denies: chills, diaphoresis, fatigue, fever, malaise, sweats, weakness, others EENTM: denies: blurred vision, double vision, ear bleeding, ear discharge, ear drainage, ear pain, ear ringing, eye pain, eye redness, hearing loss, mouth pain, mouth swelling, nasal discharge, nose bleeding, nose congestion, nose pain, photophobia, tearing, throat pain, throat swelling, voice changes, others Respiratory: denies: cough, hemoptysis, orthopnea, SOB at rest, shortness of breath, SOB with excertion, stridor, wheezing, others Cardiovascular: denies: chest pain, dizzy spells, diaphoresis, Dyspnea on exertion, edema, irregular heart beat, left arm pain, lightheadedness, palpitations, PND, syncope, others Gastrointestinal: denies: abdomen distended, abdominal pain, blood streaked bowels, constipated, diarrhea, dysphagia, difficulty swallowing, hematemesis, melena, nausea, poor appetite, poor fluid intake, rectal bleeding, rectal pain, vomiting, others Genitourinary: denies: abnormal vagina bleeding, burning, dyspareunia, dysuria, flank pain, frequency, hematuria, incontinence, pain, , vagina discharge, urgency, others Neurological: reports: headache; denies: dizziness, fainting, left sided numbness, left sided weakness, numbness, paresthesia, pre-existing deficit, right sided numbness, right sided weakness, seizure, speech problems, tingling, tremors, weakness, others Musculoskeletal: reports: joint pain, joint swelling, others (RIGHT WRIST PAIN); denies: back pain, gout, muscle pain, muscle stiffness, neck pain Integumetry: denies: bruises, change in color, change in hair/nails, dryness, laceration, lesions, lumps, rash, wounds, others Allergic/Immunocompromised: denies: Difficulty Healing, Frequent Infections, Hives, Itching, others Hematologic/Lymphatic: denies: anemia, blood clots, easy bleeding, easy bruising, swollen glands, others Endocrine: denies: excessive hunger, excessive sweating, excessive thirst, excessive urination, flushing, intolerance to cold, intolerance to heat, unexplained weight gain, unexplained weight loss, others Psychiatric: denies: anxiety, bipolar disorder, depression, hopeless, panic disorder, schizophrenia, sleepless, suicidal, others All Other Systems: Reviewed and Negative Physical Exam General Appearance: No Apparent Distress, Normal HEENT: Head (NO CONTUSIONS, HEMATOMAS AND DEFORMITY OF SCALP. ), Normal ENT Inspection, PERRL/EOMI, Pharynx Normal, TMs Normal Neck: Full Range of Motion, Non-Tender, Normal, Normal Inspection Respiratory: Chest Non-Tender, Lungs Clear, No Accessory Muscle Use, No Respiratory Distress, Normal Breath Sounds Cardiovascular: No Edema, No JVD, No Murmur, No Gallop, Normal Peripheral Pulses, Regular Rate/Rhythm Breast Exam: Deferred Gastrointestinal: No Organomegaly, Non Tender, No Pulsatile Mass, Normal Bowel Sounds, Soft Genitalia: Deferred Pelvic: Deferred Rectal: Deferred Extremities: No calf tenderness, Normal capillary refill, Normal range of motion, No pedal edema, Tender (ON RIGHT WRIST, NO BONY TENDERNESS, SWELLING AND DEFORMITY. NORMAL ROM. 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 Was a procedure done?: No Differential Diagnosis Multiple Trauma: Closed Head Injury, Fractures, Cerebral Contusion, Abrasions, Contusion, Other (CONCUSSION) Neck Injury: N/A X-Ray, Labs, Meds, VS Vital Signs Date Time Temp Pulse Resp B/P (MAP) Pulse Ox O2 Delivery O2 Flow Rate FiO2 03/25/25 08:24 98.1 88 16 122/63 99 98.1 CLINICAL INDICATION: FALL, trauma, pain TECHNIQUE: XY R WRIST 3+ VIEW XRAY Comparison: XY L WRIST 3+ VIEW XRAY on DOS: 11/19/24 FINDINGS/IMPRESSION: : Age indeterminate mildly angulated fracture of the right distal radial meta physis. Advanced degenerative changes of the radiocarpal joint space. ATED BY: MAXIMO ORTA MD DICTATED DATE/TIME: 03/25/25924 SIGNED BY: MAXIMO ORTA MD SIGNED DATE/TIME: 03/25/25924 CC: CLINICAL INFORMATION: Fall injury. TECHNIQUE: Axial imaging was obtained through the brain without contrast. Coronal and sagittal reformatted images were obtained, reviewed, and stored. Images were reviewed in brain and bone windows. All CT scans at this medical facility are performed using dose modulation techniques as appropriate to a performed exam including the following: Automated exposure control was utilized; adjustment of the MA and/or KV according to patient size; and use of iterative reconstruction technique. CTDIvol = 51.41 mGy DLP = 909.29 mGy-cm COMPARISON: CT HEAD WITHOUT CONTRAST on DOS: 01/14/24 FINDINGS: There is no acute intracranial hemorrhage. No mass effect or midline shift. Scattered areas of hypoattenuation are seen in the periventricular and subcortical white matter, which are nonspecific but most likely sequelae of small vessel ischemic disease. The ventricles and sulci are within normal limits in size for age. Basal cisterns are patent. The calvarium is unremarkable. Paranasal sinuses and mastoid air cells are clear. IMPRESSION: 1. No CT evidence of acute intracranial abnormality. 2. Nonacute findings as described above. ATED BY: CIRO FUNG DO DICTATED DATE/TIME: 03/25/25924 SIGNED BY: CIRO FUNG DO SIGNED DATE/TIME: 03/25/25924 CC: X-Ray, Labs, Meds, VS Comment EXTERNAL MEDICAL RECORDS REVIEWED: [NONE] INDEPENDENT HISTORIANS: [NONE] SOCIAL DETERMINANTS OF HEALTH: [NONE] LABS ORDERED: NONE REVIEWED AND INTERPRETED RESULTS: NONE IMAGING ORDERED: CT BRAIN, XR WRIST RT TREATMENTS ORDERED: NO PROCEDURES PERFORMED: NONE CRITICAL CARE TIME: NONE I HAVE DISCUSSED THE PATIENT WITH THE ATTENDING PHYSICIAN GERI AND HE AGREES WITH THE PATIENT'S PLAN OF CARE AND DISPOSITION. BASED ON HISTORY OF PRESENT ILLNESS, AND PHYSICAL EXAM, PATIENT WILL BE DISCHARGED HOME. SHARED DECISION MAKING: DISCUSSED WITH PATIENT THAT THEIR WORKUP WAS NORMAL. PATIENT INSTRUCTED TO FOLLOW UP WITH PRIMARY CARE PROVIDER IN 1-2 DAYS FOR RE- EVALUATION OF SYMPTOMS. PATIENT VERBALIZES UNDERSTANDING TO RETURN TO ED FOR NEW OR WORSENING SYMPTOMS OR IF FOLLOW UP WITH PCP CANNOT BE OBTAINED. PATIENT FEELS COMFORTABLE GOING HOME AT THIS TIME. ALL QUESTIONS ADDRESSED AT TIME OF DISCHARGE. Images Reviewed?: Images reviewed and evaluated by me Time of 1ST Reevaluation: 09:55 Reevaluation 1ST: Improved Patient Education/Counseling: Diagnosis, Treatment, Need For Follow Up Family Education/Counseling: Diagnosis, Treatment, Need For Follow Up Medical Screening: No EMC Exist At This Time Departure 1 Departure Time of Disposition: 10:00 Impression: Primary Impression: Acute headache Qualified Codes: G44.319 - Acute post-traumatic headache, not intractable Additional Impressions: Sprain of right wrist Qualified Codes: S63.501A - Unspecified sprain of right wrist, initial encounter Status post fall Disposition: 01 HOME / SELF CARE / HOMELESS Condition: Stable Additional Instructions: FOLLOW-UP WITH PCP IN 1 TO 2 DAYS. TAKE MEDICATIONS PRESCRIBED. RETURN TO ED FOR ANY NEW OR WORSENING SYMPTOMS. Discharged With: Self, Relative Critical Care Note Critical Care Time?: No Stability Stability form required: No I personally scribed for MACO STINSON ([email or web address]) on 03/25/25 at 09:03. Electronically submitted by Mulugeta Coronado ([email or web address]). MACO STINSON Mar 25, 2025 09:03
--- NOTE | 2025-03-25 09:27 | DVH ---
CLINICAL INDICATION: FALL, trauma, pain TECHNIQUE: XY R WRIST 3+ VIEW XRAY Comparison: XY L WRIST 3+ VIEW XRAY on DOS: 11/19/24 FINDINGS/IMPRESSION: : Age indeterminate mildly angulated fracture of the right distal radial metaphysis. Advanced degenerative changes of the radiocarpal joint space.
--- NOTE | 2025-03-25 09:27 | DVH ---
CLINICAL INFORMATION: Fall injury. TECHNIQUE: Axial imaging was obtained through the brain without contrast. Coronal and sagittal reform atted images were obtained, reviewed, and stored. Images were reviewed in brain and bone windows. Al l CT scans at this medical facility are performed using dose modulation techniques as appropriate to a performed exam including the following: Automated exposure control was utilized; adjustment of the MA and/or KV according to patient size; and use of iterative reconstruction technique. CTDIvol = 51.4 1 mGy DLP = 909.29 mGy-cm COMPARISON: CT HEAD WITHOUT CONTRAST on DOS: 01/14/24 FINDINGS: There is no acute intracranial hemorrhage. No mass effect or midline shift. Scattered areas of hypoattenuation are seen in the periventricular and subcortical white matter, which are nonspecif ic but most likely sequelae of small vessel ischemic disease. The ventricles and sulci are within nor mal limits in size for age. Basal cisterns are patent. The calvarium is unremarkable. Paranasal sinu ses and mastoid air cells are clear. IMPRESSION: 1. No CT evidence of acute intracranial abnormality. 2. Nonacute findings as described above.
[2025-03-25 09:57] VITALS: BP 108/78; PULSE 77; RESP 14; TEMP 98.2; O2SAT 98
== END 2025-03-25 10:03 | disposition home or self-care (01) ==
LOC: ER 08:22
DX: S63.591A Other specified sprain of right wrist, initial encounter (principal); R51.9 Headache, unspecified; E11.9 Type 2 diabetes mellitus without complications; I10 Essential (primary) hypertension; Z79.84 Long term (current) use of oral hypoglycemic drugs; Z79.899 Other long term (current) drug therapy; Z88.2 Allergy status to sulfonamides; Z88.5 Allergy status to narcotic agent; W18.39XA Other fall on same level, initial encounter; Y93.89 Activity, other specified; Y92.89 Other specified places as the place of occurrence of the external cause; Y99.8 Other external cause status
CPT/HCPCS: 70450; 73110

== ENCOUNTER 2025-06-07 12:02 | Outpatient (CLI) | payer OTHER, MEDICAID ==
[2025-06-07 13:33] LABS: Nucleated Red Blood Cells % 0.0 %
[2025-06-07 13:36] LABS: Hematocrit 34.2 % (36.0-46.0); Hemoglobin 11.6 g/dL (12.2-16.2); Mean Corpuscular Hemoglobin 29.2 pg (28.0-32.0); Mean Corpuscular Volume 86.1 fL (80.0-100.0)
[2025-06-07 13:55] LABS: Alanine Aminotransferase 24 U/L (7-40); Albumin 4.2 g/dL (3.2-4.8); Alkaline Phosphatase 77 U/L (46-116); Anion Gap 11 (5-15); BUN/Creatinine Ratio 8.6 (10.0-20.0); Calcium 9.1 mg/dL (8.7-10.4); Carbon Dioxide 26 mmol/L (20-31); Potassium 4.2 mmol/L (3.5-5.1); Total Protein 7.4 g/dL (5.7-8.2)
[2025-06-07 13:56] LABS: Bilirubin, Total 0.3 mg/dL (0.2-1.0); Blood Urea Nitrogen 8 mg/dL (9-23); Chloride 96 mmol/L (98-107); Glucose 160 mg/dL (74-106); Sodium 133 mmol/L (136-145)
== END 2025-06-07 17:00 | disposition home or self-care (01) ==
LOC: LAB 12:02
PROVIDERS: ATTEND Internal Medicine Rheumatology
DX: E55.9 Vitamin D deficiency, unspecified (principal); M81.0 Age-related osteoporosis without current pathological fracture; Z79.899 Other long term (current) drug therapy
CPT/HCPCS: 36415; 80053; 82306; 85025